=== PATIENT | female | born 1955 | race Caucasian/White ===

== ENCOUNTER 2021-08-06 14:03 | Emergency (ER) | payer MEDICARE, OTHER ==
[~2021-08-06] VITALS: Ht 172.7 cm; Wt 96.2 kg
[~2021-08-06 14:03] MED LIST: INDAPAMIDE2.5 MG PO; LACTULOSE10 GM/15 M PO; LEVOTHYROXINE50 MCG PO; ONDANSETRON ODT4 MG SL; PROMETRIUM100 MG PO; TYLENOL325 MG PO
[2021-08-06] MEDS ORDERED: AMLODIPINE BES2.5 MG PO (14:34)
== END 2021-08-06 16:21 | disposition home or self-care (01) ==
LOC: ED 14:03
DX: M96.89 Other intraoperative and postprocedural complications and disorders of the musculoskeletal system (principal); M79.89 Other specified soft tissue disorders; Z79.899 Other long term (current) drug therapy; E03.9 Hypothyroidism, unspecified; I10 Essential (primary) hypertension; Z88.0 Allergy status to penicillin; Z88.5 Allergy status to narcotic agent; Z91.048 Other nonmedicinal substance allergy status
CPT/HCPCS: 81001; 93971; 99284-25

== ENCOUNTER 2024-02-27 14:01 | Inpatient (IN) | payer MEDICARE, OTHER ==
[~2024-02-27] VITALS: Ht 172.7 cm; Wt 91.9 kg
[~2024-02-27 14:01] MED LIST changes: +AMLODIPINE BES2.5 MG PO
[2024-02-27] MEDS ORDERED: SODIUM CHLORIDE 0.9% 1,000 ML IV ONE (15:15)
[2024-02-27] MEDS ORDERED: PANTOPRAZOLE SODIUM 40 MG/10 ML VIAL IV ONE (15:15)
[2024-02-27] MEDS ORDERED: ondansetron HCL 4 MG/2 ML VIAL IV ONE (15:15)
[2024-02-27 15:32] LABS: BASOPHILS 1.5 % (0-2); EOSINOPHILS 0.9 % (0-6); HEMATOCRIT 41.4 % (35.0-50.0); HEMOGLOBIN 13.9 g/dL (12.0-18.0); LYMPHOCYTES 21.7 % (24-44); MCH 30.7 (27-36); MCHC 33.6 g/dl (30-36); MCV 91.2 fl (81-99); MONOCYTES 7.6 % (0-12); NEUTROPHILS 68.3 % (39-80); PLATELET COUNT 424 K/uL (140-440); RBC 4.54 M/ul (4.3-5.7); RDW 13.8 (10.5-15.0)
[2024-02-27 15:48] LABS: ALBUMIN 2.4 g/dL (3.4-5.0); ALBUMIN/GLOBULIN RATIO 0.44 (1.1-2.4); ANION GAP 14.8 (7-21); BILIRUBIN, TOTAL 0.5 ng/dL (0.2-1.0); BUN/CREATININE RATIO 11.2 (6.0-28.6); CREATININE, SERUM 1.16 mg/dL (0.55-1.02); POTASSIUM 2.8 mmol/L (3.5-5.1); PROTEIN, TOTAL 7.9 g/dL (6.4-8.2)
[2024-02-27 16:10] LABS: BILIRUBIN, URINE NEGATIVE (negative); BLOOD/HGB, URINE MODERATE (Negative); KETONE, URINE NEGATIVE (Negative); LEUK ESTERASE, URINE MODERATE (negative); NITRITE, URINE NEGATIVE (negative)
[2024-02-27] MEDS ORDERED: SEVOFLURANE 250 ML BTL INH ONE (16:17)
[2024-02-27 16:21] LABS: CASTS, URINE HYALINE 1+ \\lpf; EPITHELIAL CELLS, URINE SQUAMOUS 1+ /lpf (0-1+)
[2024-02-27 16:22] LABS: REFLEX CULTURE, URINE Yes (No)
[2024-02-27] MEDS ORDERED: levoFLOXacin 750 MG PIGGYBACK IV ONE (17:30)
[2024-02-27] MEDS ORDERED: metroNIDAZOLE/SODIUM CHLORIDE 500 MG/100 ML PIGGYBACK IV ONE (17:30)
[2024-02-27] MEDS ORDERED: LACTATED RINGER'S 1,000 ML IV SCH ×2 (18:00→21:30)
[2024-02-27] MEDS ORDERED: ondansetron HCL 4 MG/2 ML VIAL IV PRN ×2 (18:00→21:30)
[2024-02-27 18:48] VITALS: BP 123/94
--- NOTE | 2024-02-27 18:56 | NUR ---
PATIENT ARRIVED TO MED SURG AT 1842. PATIENT STOOD AND TRANSFERRED SELF TO BED WITH SBA. RIGHT A/C IV IS PAINFUL, SEEMS TO BE INFILTRATED. VITALS AND PATIENT WEIGHT RECORDED, ADMISSION STARTED. SCD'S ARE ON THE BED.
--- NOTE | 2024-02-27 19:38 | NUR ---
REPORT RECEIVED FROM DAY SHIFT RN. PT LYING IN BED ALERT AND ORIENTED. PT REQUESTING WATER OR ICE CHIPS. REMINDED OF NPO STATUS. ORAL CARE SUPPLIES PROVIDED. NO FURTHER NEEDS. CALL LIGHT IN REACH. WHITE BOARD UPDATED.
--- NOTE | 2024-02-27 19:45 | NUR ---
DR RAYMOND IN ROOM VISITING WITH PT AND HER .
[2024-02-27 20:15] VITALS: BP 129/55
[2024-02-27 20:16] VITALS: BP 129/55
--- NOTE | 2024-02-27 20:33 | NUR ---
pt cooperative with admit questins and assessment. very anxious, safety reassured. Up to BRp, voided clear yellow urine, back to bed, did own zabrina care, lotion to buttocks reddened area. Did own HS care, back to bed, tolerated well. IVF infusing, no c/o adverse reaction to IV abx.
--- NOTE | 2024-02-27 20:52 | NUR ---
DR PYLE HERE TO SEE PT
[2024-02-27] MEDS ORDERED: FAMOTIDINE 20 MG/ 2 ML VIAL IV SCH (21:00)
--- NOTE | 2024-02-27 21:12 | NUR ---
DR PYLE IN ROOM EXAMINING PT. PT WILL BE NPO AFTER MIDNIGHT, ICE CHIPS AND CLEAR FLUIDS GIVEN. SCDS IN PLACE, DR CHRISTELLE LEONARD.
[2024-02-27] MEDS ORDERED: CIPROFLOXACIN/DEXTROSE 400 MG/200 ML PIGGYBACK IV SCH (21:25)
[2024-02-27] MEDS ORDERED: MAGNESIUM HYDROXIDE/AL HYDROX 30 ML CUP PO PRN (21:30)
[2024-02-27] MEDS ORDERED: ACETAMINOPHEN 1,000 MG/100 ML VIAL IV PRN (21:30)
[2024-02-27] MEDS ORDERED: MAGNESIUM SULFATE 2 GM/50 ML BAG IV ONE (21:30)
[2024-02-27] MEDS ORDERED: POTASSIUM CHLORIDE 40 MEQ,LIDOCAINE HCL 1% 40 MG in DEXTROSE 5% 250 ML IV ONE (21:30)
[2024-02-27] MEDS ORDERED: MORPHINE SULFATE 10 MG/ML VIAL IV PRN (21:30)
[2024-02-27] MEDS ORDERED: KETOROLAC TROMETHAMINE 15 MG/ML VIAL IV PRN (21:30)
[2024-02-27] MEDS ORDERED: HYDROmorphone HCL 1 MG/ML SYR IV PRN (21:30)
[2024-02-27] MEDS ORDERED: ONDANSETRON 4 MG TAB ODT SL PRN (21:30)
[2024-02-27] MEDS ORDERED: metroNIDAZOLE/SODIUM CHLORIDE 500 MG/100 ML PIGGYBACK IV SCH (22:00)
[2024-02-27] MEDS ORDERED: POTASSIUM CHLORIDE 10 MEQ/100 ML BAG IV SCH (22:00)
--- NOTE | 2024-02-27 22:16 | NUR ---
PT UP TO BR WITH MINIMAL SBA TO VOID AN UNMEASURED AMOUNT. GAIT STEADY. BACK TO BED, MING WELL. WARM BLANKETS PROVIDED. SCD'S IN PLACE. NO FURTHER NEEDS.
[2024-02-27 23:40] VITALS: BP 118/49
[2024-02-27] MEDS ORDERED: diphenhydrAMINE HCL 50 MG/ML VIAL IV PRN (23:45)
[2024-02-27] MEDS ORDERED: PROCHLORPERAZINE EDISYLATE 10 MG/2 ML VIAL IV PRN (23:45)
[2024-02-28] VITALS (11 sets, daily range): BP systolic 112–1450; BP diastolic 50–97
--- NOTE | 2024-02-28 00:12 | NUR ---
CALL LIGHT ANSWERED. PT REPORTS FEELING FLUSHED. IV MAG STOPPED. VS WNL. NO REDNESS OR RASH NOTED. MD NOTIFIED. NEW TELEPHONE ORDERS RECEIVED VERIFIED WITH READBACK METHOD. MEDS ADMIN PER EMAR. PT REPORTS SX IMPROVED. NO FURTHER NEEDS.
--- NOTE | 2024-02-28 00:45 | NUR ---
SBA MINIMAL ASSIST TOT HE BATHROOM AND BACK TO BED. WARM BLANKET PROVIDED PER PATIENT. NO FURTHER NEEDS AT THIS TIME.
--- NOTE | 2024-02-28 01:59 | NUR ---
CALL LIGHT ANSWERED. PT UP TO BR WITH SBA TO VOID. BACK TO BED, MING WELL. WARM BLANKET PROVIDED. VS AND I&O OBTAINED. PT DENIES PAIN OR NAUSEA AT THIS TIME. ASSESSMENT COMPLETE. NO FURTHER NEEDS.
--- NOTE | 2024-02-28 02:40 | NUR ---
PT RESTING WITH EYES CLOSED. RESPIRATIONS EVEN. BAG #3 OF 4 IV POTASSIUM INFUSING PER ORDER.
--- NOTE | 2024-02-28 03:40 | NUR ---
BAG #4 OF 4 IV POTATSSIUM INFUSING PER ORDER. PT RESTING WITH EYES CLOSED. RESPIRATIONS EVEN.
[2024-02-28] MEDS ORDERED: POTASSIUM CHLORIDE 10 MEQ/100 ML BAG IV SCH (03:45)
--- NOTE | 2024-02-28 04:12 | NUR ---
CALL LIGHT ANSWERED. PT UP TO BR WITH SBA TO VOID. BACK TO BED, MING WELL. REPORTS DISCOMFORT WITH IV POTASSIUM INFUSION. EDUCATION PROVIDED. ARM WRAPPED IN WARM BLANKET. PT NPO. ORAL CARE SUPPLIES PROVIDED. NO FURTHER NEEDS.
[2024-02-28 05:30] LABS: BASOPHILS 0.6 % (0-2); EOSINOPHILS 1.3 % (0-6); HEMATOCRIT 37.8 % (35.0-50.0); HEMOGLOBIN 12.9 g/dL (12.0-18.0); LYMPHOCYTES 16.5 % (24-44); MCHC 34.2 g/dl (30-36); MCV 90.6 fl (81-99); MONOCYTES 9.4 % (0-12); NEUTROPHILS 72.2 % (39-80); PLATELET COUNT 426 K/uL (140-440); RBC 4.17 M/ul (4.3-5.7); RDW 13.8 (10.5-15.0)
[2024-02-28 05:45] LABS: ALBUMIN 1.8 g/dL (3.4-5.0); ALBUMIN/GLOBULIN RATIO 0.37 (1.1-2.4); ANION GAP 11.9 (7-21); BILIRUBIN, TOTAL 0.5 ng/dL (0.2-1.0); CALCIUM 8.3 mg/dL (8.5-10.1); MAGNESIUM 2.1 mg/dL (1.8-2.4); POTASSIUM 3.9 mmol/L (3.5-5.1); PROTEIN, TOTAL 6.7 g/dL (6.4-8.2)
--- NOTE | 2024-02-28 06:26 | NUR ---
PT RESTING WITH EYES CLOSED. RESPIRATIONS EVEN. IV ABX INFUSING PER ORDER. CALL LIGHT IN REACH.
--- NOTE | 2024-02-28 07:17 | NUR ---
VERBAL REPORT RECEIVED FROM CHOCO SOLANO. PT RESTS IN BED, AWAKE AND ALERT, NO REQUESTS AT THIS TIME.
--- NOTE | 2024-02-28 07:57 | NUR ---
UR CLINICAL REVIEW: 2MN JOE, MEETS INPT FOR POTENTIAL INTRA-ABDOMINAL ABSCESS MEDICARE INPT 02/27/2024 @ 1758 ORDER MATCHES REG NO AUTH REQUIRED PER MEDICARE RULES PLAN TO DC TO HOME WHEN MEDICALLY STABLE.
[2024-02-28] MEDS ORDERED: AMLODIPINE BESYLATE 2.5 MG TAB PO SCH (09:00)
[2024-02-28] MEDS ORDERED: FAMOTIDINE 20 MG/ 2 ML VIAL IV SCH (09:00)
--- NOTE | 2024-02-28 09:12 | NUR ---
PT REPORTS, "BURNING PAIN" IN LEFT IV SITE. CIPRO INFUSION STOPPED. IV FLUSHED WITH 10 CC OF NS, NO SWELLING OR LEAKING NOTED. REDNESS NOTED ABOVE SITE. NEW IV, 22 G STARTED IN RIGHT WRIST. INFUSION RESUMED IN RIGHT WRIST. NOTED FIRM, PAINFUL MASS IN RUQ UPON ABDOMINAL ASSESSMENT.
--- NOTE | 2024-02-28 09:32 | NUR ---
OFIRMEV INFUSION STARTED FOR ABDOMINAL PAIN, SEE EMAR.
--- NOTE | 2024-02-28 10:51 | NUR ---
PATIENT CALLED TO USE RESTROOM, THIS [facility] WORKER IN TO ASSIST. PATIENT UP TO BATHROOM FROM CHAIR, THEN TO BED FROM BATHROOM, SBA. DAUGHTER IN ROOM. WARM BLANKET GIVEN. CALL LIGHT IN REACH. NO FURTHER NEEDS AT THIS TIME.
--- NOTE | 2024-02-28 11:12 | NUR ---
ALERT AND ORIENTED IN BED. FAMILY MEMBER IN ROOM AT THIS TIME. PATIENT LIVES IN SINGLE LEVEL HOUSE WITH "A COUPLE" STEPS WITH HANDRAIL TO GET INSIDE, WITH HER . SHE HAS A WALKER, CANE AT HOME. SHE DOES NOT USE THEM AT BASELINE. STATES SHE DRIVES. SHE HAS NO FINANCIAL CONCERNS. NO KNOWN CM NEEDS AT THIS TIME.
--- NOTE | 2024-02-28 11:30 | NUR ---
PATIENT NEEDED HELP THIS MORNING TO DO SURGICAL WIPE DOWN. NEW GOWN AND SOCKS AND NURSE PUT NEW BED LINENS ON. WARM BLANKET AND SCDS ON.
[2024-02-28] MEDS ORDERED: DEXAMETHASONE SOD PHOS 4 MG/ML VIAL ONE ×2 (11:47→14:21)
[2024-02-28] MEDS ORDERED: dexmedeTOMIDine HCl 200 MCG/2 ML VIAL ONE (11:47)
[2024-02-28] MEDS ORDERED: KETOROLAC TROMETHAMINE 30 MG/ML VIAL ONE (11:47)
[2024-02-28] MEDS ORDERED: ROCURONIUM BROMIDE 50 MG/5 ML SYR ONE ×2 (11:47→14:45)
[2024-02-28] MEDS ORDERED: propofoL 200 MG/20 ML VIAL ONE (11:47)
[2024-02-28] MEDS ORDERED: ondansetron HCL 4 MG/2 ML VIAL ONE (11:47)
[2024-02-28] MEDS ORDERED: LIDOCAINE HCL 1% 30 ML SDV ONE (11:47)
[2024-02-28] MEDS ORDERED: LIDOCAINE HCL 2% 5 ML SDV ONE (11:47)
[2024-02-28] MEDS ORDERED: KETAMINE in NS 50 MG/5 ML SYR ONE (11:52)
--- NOTE | 2024-02-28 11:52 | HP ---
[facility] [address] [place], [place] [address] Signed ADMISSION DATE: 02/27/2024 REASON FOR ADMISSION: Right lower abdominal wall soft tissue mass and suspicion of enterocutaneous fistula or hematoma. HISTORY: This 69-year-old white woman is from [place], [place]. She was found by Dr. Gregg to have what sounds uterine carcinoma for which she was referred to [place], [place] top Dr Rosales and underwent a total hysterectomy without salpingo-oophorectomy she says about a month ago. This was by laparoscopic or robotic technique. She has had unremitting right-sided abdominal pain since operation. She tells me there was swelling and possibly what sounds like a hematoma in the area, which was never drained. She has been feeling poorly since her operation from the outset. She was evaluated by Dr. Gregg in his clinic and found to have a palpable mass in the region of the right lower abdomen directly beneath a trocar site incision. On that basis, he referred her to the emergency room for further evaluation. She was found to have a palpable mass in the right lower abdomen, which was somewhat tender well demarcated and hard in texture. A CT scan was performed, which showed acute jejunal diverticulitis with fistulous tract extending to a loop of small bowel deep to the umbilicus and to the right anterior abdominal wall with multiloculated abscess/adjacent abscess extending through the abdominal wall musculature. There is nonspecific left pelvic cystic fluid collections 5.6 cm in size and possible ovarian or paraovarian cyst. 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 Evaluation included a CBC, which was essentially normal with a white count of 10.0, hematocrit 41.4, platelets 424,000. Chem 20 was abnormal for potassium low at 2.8, creatinine elevated at 1.16. Liver enzymes normal. Urinalysis was abnormal for elevated urine. White blood cells are 12-20 per high-power field. Urine RBCs 4 to 6 per high-power field. PH was 6.0, specific gravity 1.010. PHYSICAL EXAMINATION: GENERAL: A pleasant white woman with a BMI of 29.9, weighing 89.2 kg, and height 5 feet 8 inches in height. NECK: Trachea is midline. She has no hoarseness. There is no sign of systemic toxicity. CHEST: Clear. Electronically Signed By: AURELIA PYLE MD 02/28/24 1152 PATIENT NAME: AUDRA OROZCO HISTORY AND PHYSICAL DATE OF : 55 REPORT #: [id number] PHYSICIAN: AURELIA PYLE MD PCP: SUSAN WILLAMS MD REPORT IS CONFIDENTIAL AND NOT TO BE RELEASED WITHOUT AUTHORIZATION [facility] [address] [place], [place] [address] Signed HEART: Regular without murmur. ABDOMEN: Obese, but soft. There are multiple trocar site incisions of the abdomen. In the right lower abdomen, there is a palpable mass about the size of a tennis ball with a small trocar site directly over it. It is not erythematous. It is mildly tender. EXTREMITIES: Show no clubbing, cyanosis, or edema. SCD devices are not yet in place, so they will be soon. LAB STUDIES: As previously noted. ASSESSMENT: The patient had a gynecologic malignancy ( uterine) with hysterectomy a month ago She did undergo hysterectomy and I am uncertain regarding salpingo-oophorectomy. In any case, the finding currently is a tender mass, which has been evolving over weeks since operation. Close inspection of the images did not show generalized free intraperitoneal air, but certainly does show a subcutaneous soft tissue mass with rim enhancement suggestive of abscess, though it could be an involuting hematoma. On the peritoneal side of this process is a similar pocket of abscess or other similar phenomenon, which looks contiguous to small loop of bowel in the region. The gallbladder has some distention and one small stone noted, but not acutely inflamed so far as can be told. One wonders if there was perhaps an enteric injury during the operation four weeks ago versus possibly a hematoma related to trocar placement, which appears to be directly over the area in question. Notes from her hospital have been requested, but not yet available to better define these particulars. 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 We discussed all these issues in detail. She understands and agrees to this approach at this time. There is no need for emergent operation at this moment. Of special note, identified on the CT scan was the incidental finding of nonspecific left pelvic cystic fluid collection. There is no adenopathy noted in the retroperitoneum or pelvis. Metallic artifact cause distortion to poorly characterize the pelvic structures. Bladder and distal ureters were not well visualized. The body wall was interpreted as having (abdominal abscess tending straight in through the right abdominal wall and into the subcutaneous fat). Electronically Signed By: AURELIA PYLE MD 02/28/24 1152 PATIENT NAME: AUDRA OROZCO HISTORY AND PHYSICAL DATE OF : 55 REPORT #: [id number] PHYSICIAN: AURELIA PYLE MD PCP: SUSAN WILLAMS MD REPORT IS CONFIDENTIAL AND NOT TO BE RELEASED WITHOUT AUTHORIZATION [facility] [address] [address] Signed We will keep our options open for possible need for exploration tomorrow by making patient n.p.o. after midnight. We will continue broad-spectrum antibiotic Cipro and Flagyl for the time being. MD SRIDHAR Ramos/APOORVA /[id number] cc: DO Dr. Prachi Ramesh Copies: OLLIE GREGG (FAVIO) ~ Electronically Signed By: AURELIA PYLE MD 02/28/24 1152 PATIENT NAME: AUDRA OROZCO HISTORY AND PHYSICAL DATE OF : 55 REPORT #: [id number] PHYSICIAN: AURELIA PYLE MD PCP: SUSAN WILLAMS MD REPORT IS CONFIDENTIAL AND NOT TO BE RELEASED WITHOUT AUTHORIZATION
--- NOTE | 2024-02-28 11:59 | NUR ---
CHG PRE-SURGICAL WIPE DOWN COMPLETE. BED LINENS CHANGED. PT TO BED. SURGICAL TEAM ESCORTS PT OFF UNIT TO PROCEDURE. DAUGHTER FOLLOWS.
[2024-02-28] MEDS ORDERED: SODIUM CHLORIDE 0.9% 20 ML IV ONE ×2 (12:28→16:08)
--- NOTE | 2024-02-28 12:35 | NUR ---
PT REPORT RECIEVED FROM CHOCO ZURITA. PT CURRENTLY IN SURGERY WITH MD PYLE. PT SHOULD RETURN SHORTLY.
--- NOTE | 2024-02-28 12:38 | NUR ---
VERBAL REPORT PROVIDED TO JANETT RN AND CHOCO MO.
[2024-02-28] MEDS ORDERED: MAGNESIUM SULFATE 1 GM/2 ML VIAL ONE (12:39)
[2024-02-28] MEDS ORDERED: LACTATED RINGER'S 1,000 ML IV ONE ×2 (13:34→14:51)
[2024-02-28] MEDS ORDERED: SODIUM CHLORIDE 0.9% 60 ML IV ONE (14:21)
[2024-02-28] MEDS ORDERED: Ropivacaine HCl 0.5% 30 ML VIAL ONE ×2 (14:21→16:08)
[2024-02-28] MEDS ORDERED: SUGAMMADEX SODIUM 200 MG/2 ML ML ONE (14:45)
[2024-02-28] MEDS ORDERED: ACETAMINOPHEN 1,000 MG/100 ML VIAL ONE (14:49)
[2024-02-28] MEDS ORDERED: droPERidol 5 MG/2 ML VIAL ONE (15:42)
[2024-02-28] MEDS ORDERED: LEVOTHYROXINE75 MCG PO (15:54)
--- NOTE | 2024-02-28 15:58 | NUR ---
medications reconciled
--- NOTE | 2024-02-28 17:16 | NUR ---
02/28/24 1716 Yareli Palmer 1647-PT ARRIVES TO PACU ON 6L VIA MASK. PT IS NONAROUSABLE TO VERBAL STIMULI. PT REQUIRES CHIN LIFT DONE BY ASSISTANT MEN'S LACROSSE COACH. HOB ELEVATED. 1655-PT IS NONAROUSABLE TO VERBAL/TACTILE SIMULI. PT REQUIRES CHIN LIFT DONE BY ASSISTANT MEN'S LACROSSE COACH. 1701-PT IS REACTIVE TO VERBAL STIMULI. RESP EVEN AND UNLABORED. ENCOURAGED PT TO TAKE DEEP BREATHS. HOB DECREASE. 1707-PT IS REACTIVE TO VERBAL STIMULI. RES EVEN AND UNLABORED. PT ENCOURAGED TO TAKE DEEP BREATHS. PT SHAKES HER HEAD YES. 1715-PT RESPONDS TO VERBAL STIMULI. PT SHAKES HEAD NO WHEN ASKED ABOUT PAIN. RESP EVEN AND UNLABORED.
[2024-02-28] MEDS ORDERED: NALOXONE HCL 0.4 MG SYR IV PRN (17:30)
[2024-02-28] MEDS ORDERED: IBLOOD GLUCOSE TEST STRIP 1 EA TEST VI PRN (17:30)
[2024-02-28] MEDS ORDERED: fentaNYL citrate 50 MCG/ML SDV IV PRN (17:30)
[2024-02-28] MEDS ORDERED: ondansetron HCL 4 MG/2 ML VIAL IV PRN (17:30)
[2024-02-28] MEDS ORDERED: KETOROLAC TROMETHAMINE 30 MG/ML VIAL IV PRN (18:30)
[2024-02-28] MEDS ORDERED: ACETAMINOPHEN 1,000 MG/100 ML VIAL IV PRN (18:30)
--- NOTE | 2024-02-28 18:32 | NUR ---
PT BROUGHT TO MED/SURG FROM THE PACU VIA STRETCHER. PT REPORT RECIEVED FROM PACU, RN. DURING TRANSPORT PT BECAME NAUSEOUS AND VOMMITED 100ML SUCTION IN REACH AND HEAD ELEVATED >30 DEGREES. PT ARRIVED WITH A MIDLINE WITH SUTURES, STERI STRIP, AND ACTICOAT DRESSING, SCANT SHADOWING UNDER DRESSING. PT HAS A WOUND VAC ON THE RUQ @ 120MMhG TO DRAIN THE ABCESS, WENDY DRAIN IN THE RLQ AND A WIGGINS CATHETER. WENDY DRAIN - 20ML SANGUINEOUS, WIGGINS - 75ML DARK YELLOW. VITALS COMPLETED AND CPOX IN PLACE. PT DAUGHTER MENTIONED THAT THE PT HAS A HX OF O2 DESATING POST OP. PT CURRENTLY SATTING AT 94 O2 ON CPOX.
--- NOTE | 2024-02-28 18:44 | NUR ---
PT FLOATED LEFT SIDE AND WARM PACK PROVIDED TO LOW BACK FOR COMFORT.
--- NOTE | 2024-02-28 19:21 | NUR ---
In with pt while primary RN, Asmita, receiving report on this pt. Pt is resting with eyes closed, supine, in bed, breathing is regular, even, and non-labored. Kenya Black obtained VS for post op. Midline incision covered, dressing with small amount of shadowing to the middle of the dressing. Wound vac set to 120, no drainage in cannister noted. WENDY dressing with minute amount of drainage, WENDY emptied of 55ml sanguinous fluid. Pt awakens easily to light touch and voice. Denies needs at this time. Pt's daughter in room.
--- NOTE | 2024-02-28 19:39 | NUR ---
REPORT RECEIVED FROM DAY SHIFT RN. PT LYING IN BED RESTING WITH EYES CLOSED. RESPIRATIONS EVEN. SpO2 93% ON RA. HR 60'S. CALL LIGHT IN REACH.
--- NOTE | 2024-02-28 20:12 | NUR ---
In with pt in response to request for RN. Pt requests to sit up at edge of bed because she is nauseated. Primary RN advised and confirmed okay to administer PRN compazine at this time. Pt with approx 100ml clear emesis into emesis bag. Compazine administered per emar, slow IVp with flush before and after. Pt given water and mouth wash to rinse and spit with and instructed daughter to encourage her not to swallow any liquid as she is NPO. Both verbalized understanding. Call light in reach. Daughter assisting pt with cool wash cloth.
--- NOTE | 2024-02-28 20:30 | NUR ---
PT RESTING WITH EYES CLOSED. AWAKENS EASILY. POST OP VS OBTAINED, WNL. NO C/O PAIN AT THIS TIME. PT/FAMILY REPORTS NAUSEA IMPROVED. BOWEL TONES HYPOACTIVE. ABD SOFT. ABD INCISION WITH SMALL AMOUNT SEROSANG DRAINAGE. WENDY WITH 30 ML SANGUINEOUS DRAINAGE. WOUND VAC INTACT TO RIGHT QUADRANT AT 120 MMHG. WIGGINS PATENT WITH YELLOW URINE. SCD'S IN PLACE. ASSISTED PT TO REPOSITION WITH PILLOWS. DAUGHTER AT BEDSIDE. NO FURTHER NEEDS.
--- NOTE | 2024-02-28 21:00 | NUR ---
Pt requested to use O2 while sleeping. Daughter states that the pt usually needs oxygen at night after surgery. Updated primary RN before applying 1lpm O2 via NC to pt. CPOX on. Pt resting quietly with eyes closed, breathing is regular, even, and non-labored, spo2 at 96% on room air prior to placing pt on O2.
--- NOTE | 2024-02-28 21:01 | NUR ---
PATIENT STOOD UP AT THE EDGE OF THE BED FOR 1 TO 2 MINUTES HOLDING ON TO THE WALKER. PATIENT STATED NO FEELING OF NAUSEA, YET. PATIENT IS BACK IN BED. WARM BLANKET PROVIDED. FAMILY IN THE ROOM.
--- NOTE | 2024-02-28 21:30 | NUR ---
SCHEDULED MEDS ADMIN PER EMAR. PT REQUESTS SCD'S TO BE REMOVED. EDUCATION PROVIDED. PT VERBALIZES UNDERSTANDING. SCD'S OFF. ASSISTED TO REPOSITION TO LEFT SIDE WITH PILLOWS. NO C/O NAUSEA OR ABD PAIN. PT REPORTS CHRONIC BACK PAIN. POST OP VS OBTAINED, WNL. ORAL CARE SUPPLIES PROVIDED. NO FURTHER NEEDS.
--- NOTE | 2024-02-28 21:55 | NUR ---
PATIENT CALLED WANTING TO GET UP TO SIT AT THE EDGE OF THE BED. PATIENT SAT FOR 15 MINUTES. PATIENT HAD SOME DRY HEAVING. PATIENT RINSED HER MOUTH WITH WATER AND MOUTH WASH. PATIENT IS BACK IN BED. TUBINGS OF WOUND BACK, WIGGINS AND WENDY WERE CHECK AND ALL WERE IN PLACED.
--- NOTE | 2024-02-28 23:17 | NUR ---
IV PUMP ALARMING. ISSUE RESOLVED. PT DOZING ON AND OFF SNORING SOFTLY. REQUESTS TYLENOL FOR PAIN. PRN FOR PAIN ADMIN PER EMAR. PT LEFT IN RELAXED POSITION. DAUGHTER RESTING ON COUCH. NO FURTHER NEEDS.
[2024-02-29] VITALS (8 sets, daily range): BP systolic 120–141; BP diastolic 48–66
--- NOTE | 2024-02-29 00:21 | NUR ---
CALL LIGHT ANSWERED. PT REQUESTING TO SIT AT THE SIDE OF THE BED. IN TO ASSIST. PT REPORTS MIDDLE BACK PAIN PREVENTING HER FROM GETTING COMFORTABLE. PT REPORTS PAIN IS CHRONIC AND MADE WORSE "BY WHAT EVER THEY DID." ASSISTED PT TO RECLINER WITH FWW. GAIT STEADY. AIR MATTRESS APPLIED TO BED. PT BECAME NAUSEOUS WHILE SITTING. PRN N/V ADMIN PER EMAR. BACK TO BED, MING WELL. ASSISTED TO REPOSITION WITH PILLOWS. PT REPORTS SHE IS COMFOTABLE AT THIS TIME CPOX IN PLACE. DAUGHTER REMAINS IN ROOM. CALL LIGHT IN REACH.
--- NOTE | 2024-02-29 01:04 | NUR ---
PT RESTING IN BED WITH EYES CLOSED. RESPIRATIONS EVEN. HOB ELEVATED. SpO2 MID 90'S ON RA. HR 60'S.
--- NOTE | 2024-02-29 02:01 | NUR ---
CALL LIGHT ANSWERED. PT REQUESTING ICE CHIPS. EDUCATION GIVEN REGARDING NPO STATUS. PT RECEPTIVE. ORAL SWABS AND ORAL MOISTURIZER PROVIDED. VS AND I&O OBTAINED. PT REPORTS NAUSEA AND 5/10 BACK/ABD PAIN. PRN FOR PAIN AND N/V ADMIN PER EMAR. ASSESSMENT UNCHANGED. BOWEL TONES HYPOACTIVE. PT DENIES FLATUS. ABD DRESSING INTACT WITH SMALL AMOUNT SHADOWING. WENDY RLQ WITH 20 ML SANGUINOUS DRAINAGE. WOUND VAC IN PLACE. WIGGINS PATENT WTIH 100 ML CONCENTRATED URINE. NO FURTHER NEEDS. CALL LIGHT IN REACH.
--- NOTE | 2024-02-29 02:59 | NUR ---
CALL LIGHT ANSWERED. PT UP TO AMB HALF THE LENGTH OF THE DRIVER WITH SBA. GAIT STEADY. PT MING WELL. BACK TO BED. ORAL MOISTURIZER AND WARM BLANKETS PROVIDED. NO FURTHER NEEDS.
--- NOTE | 2024-02-29 04:01 | NUR ---
PT RESTING IN BED WITH EYES CLOSED. RESPIRATIONS EVEN. CALL LIGHT IN REACH.
--- NOTE | 2024-02-29 04:50 | NUR ---
PT UP TO AMB THE LENGTH OF THE DRIVER WITH FWW AND SBA. GAIT STEADY. BACK TO RECLINER. PT REPORTS NAUSEA AFTER RETURNING TO ROOM. TOO EARLY FOR PRN N/V. PT AGREEABLE TO WAIT FOR NEXT AVAILABLE NAUSEA HAD PASSED.
[2024-02-29 05:25] LABS: BASOPHILS 0.5 % (0-2); EOSINOPHILS 0.1 % (0-6); HEMATOCRIT 38.1 % (35.0-50.0); HEMOGLOBIN 12.9 g/dL (12.0-18.0); LYMPHOCYTES 6.6 % (24-44); MCH 30.8 (27-36); MCHC 33.8 g/dl (30-36); MCV 91.2 fl (81-99); MONOCYTES 4.4 % (0-12); NEUTROPHILS 88.4 % (39-80); PLATELET COUNT 367 K/uL (140-440); RBC 4.17 M/ul (4.3-5.7)
[2024-02-29 05:41] LABS: ALBUMIN 1.8 g/dL (3.4-5.0); ALBUMIN/GLOBULIN RATIO 0.42 (1.1-2.4); ANION GAP 12.9 (7-21); BILIRUBIN, TOTAL 0.4 ng/dL (0.2-1.0); BUN/CREATININE RATIO 10.93 (6.0-28.6); CALCIUM 7.8 mg/dL (8.5-10.1); CREATININE, SERUM 1.28 mg/dL (0.55-1.02); POTASSIUM 3.9 mmol/L (3.5-5.1); PROTEIN, TOTAL 6.1 g/dL (6.4-8.2)
--- NOTE | 2024-02-29 06:16 | NUR ---
PT BACK TO BED WITH SBA AND FWW. PRN FOR N/V AND ABD PAIN 08/14 ADMIN PER EMAR. IV ABX INFUSING PER ORDER. ORAL CARE SUPPLIES PROVIDED. NO FURTHER NEEDS.
--- NOTE | 2024-02-29 06:36 | NUR ---
MD UPDATED ON PT STATUS REGARDING LOW/CONCENTRATED URINE OUTPUT, WENDY OUTPUT, AND NAUSEA THROUGH THE NIGHT. TELEPHONE ORDERS RECEIVED VERIFIED WITH READBACK METHOD.
[2024-02-29] MEDS ORDERED: LORazepam 2 MG/ML VIAL IV PRN (06:45)
[2024-02-29] MEDS ORDERED: LACTATED RINGER'S 500 ML IV ONE (06:45)
--- NOTE | 2024-02-29 06:55 | NUR ---
FEW ICE CHIPS GIVEN, EDUCATION PROVIDED TO PT AND DAUGHTER ON TAKING SMALL AMOUNTS. BOLUS INFUSING PER ORDER. 2PA TO REPOSITION IN BED. NO FURTHER NEEDS.
--- NOTE | 2024-02-29 07:38 | NUR ---
RECIEVED ROUND REPORT FROM CHOCO SOLANO. PT IS SLEEPING WELL. DAUGHTER SLEEPING AT BEDSIDE. NO NEEDS AT THIS TIME.
--- NOTE | 2024-02-29 07:58 | NUR ---
PT WOUND VAC WAS ALARMING. TUBE WAS UNDER HER LEG. REARRIGNED TUBING AND RESTARTED WOUND VAC. ASSISTED PT UP TO WALK IN DRIVER.
--- NOTE | 2024-02-29 08:50 | NUR ---
PT HAS BEEN UP TO CHAIR AND UP WALKING ALREADY THIS MORNING. SHE HAS RETURNED TO BED AT THIS TIME. WOUND VAC IS FUNCTIONING CORRECTLY, FLUID IN TUBE BUT NOT IN CANISTER AT THIS TIME. NO NEW DRAINAGE ON ABD DRESSING. IVF RUNNING PER ORDER, ABX ALSO RUNNING.
--- NOTE | 2024-02-29 12:25 | NUR ---
PT IS SLEEPING. DAUGHTER AT BEDSIDE. RESET FLUIDS TO FINISH INFUSION. ANSWERED QUESTIONS RE: TYLENOL AND WIGGINS.
--- NOTE | 2024-02-29 13:42 | NUR ---
PATIENT GIVEN IV TORADOL AND IV TYLENOL FOR 7/10 ABD PAIN.
--- NOTE | 2024-02-29 13:59 | NUR ---
PATIENT IN BED RESTING AT THIS TIME. VITALS AND I&O'S DONE AND CHARTED. CATH CARE DONE. CALL LIGHT IN REACH. NO FURTHER NEEDS AT THIS TIME.
--- NOTE | 2024-02-29 14:13 | NUR ---
PT IS SLEEPING SOUNDLY. APPEARS COMFORTABLE. DAUGHTER AT BEDSIDE.
--- NOTE | 2024-02-29 17:51 | NUR ---
PT HAS BEEN UP WALKING SEVERAL TIMES THIS SHIFT. SHE HAS BEEN UP TO CHAIR MULTIPLE TIMES. WOUND VAC HAS BEEN FUNCTIONING WELL, SCANT AMOUNT OF FLUID IN CANISTER. WENDY DRAIN DRAINING ALMA BLOOD. IVF RUNNING PER ORDER. PT HAS BEEN ANXIOUS, LORAZEPAM GIVEN X1. PT REPORTED SOME NAUSEA, ANTIEMETICS GIVEN X2. PT GIVEN TORADOL AND TYLENOL X1 EACH THIS SHIFT.
--- NOTE | 2024-02-29 18:03 | NUR ---
IN TO ASSIST PATIENT TO BATHROOM, UP TO BATHROOM SBA. PATIENT NOW AMBULATING IN HALLWAY, SBA WITH DAUGHTER.
--- NOTE | 2024-02-29 19:34 | NUR ---
REPORT RECIEVED FROM DAY SHIFT RN. PATIENT RESTING IN BED WITH DAUGHTER IN ROOM. DENIES NEEDS AT THIS TIME. CALL LIGHT IN REACH.
--- NOTE | 2024-02-29 20:52 | NUR ---
call light answered, iv tylenol complete. iv site wnl and now saline locked. second iv site has iv fluids infusing as directed. family in room. spo2 low 90's, hr wnl. family in room, call light in reach.
--- NOTE | 2024-02-29 21:34 | NUR ---
PATIENT RESTING IN BED. SCHEDULED MEDICATION ADMINSITERED. BOTH IVs FLUSH WNL. ASSESSMENT COMPLETE. ABD DRESSING C/D/I WITH MINIMAL DRY DRAINAGE. 18 mL SEROSANGGUINEOUS DRAINAGE OUT OF WENDY DRAIN. PATIENT REFUSING SCDs AT THIS TIME. PATIENT AND DAUGHTER DENY NEEDS AT THIS TIME. CALL LIGHT IN REACH.
--- NOTE | 2024-02-29 22:23 | NUR ---
call light answered, pt restless and wanting to get oob, daughter akilah remains at bedside and attentive. pt up, slow moving but steady on feet. assistance required for tube management. pt ambulated sba with fww to abthroom, vaca emptied for 350mls yellow urine and pt has small bm, pebble like in consistency. pt wishes to have waffle mattress removed at this time for comfort, new bed linen in place. pt back in bed, iv sites wnl. iv pump and wound vac both plugged in and charging. cpox resumed along with scd's. no further needs, call light in reach. daughter provided with snack and fresh soda. primary rn updated.
--- NOTE | 2024-02-29 22:45 | NUR ---
SCHEDULED IV ABX INFUSING PER ORDER. NO FURTHER NEEDS. CALL LIGHT IN REACH.
[2024-03-01] VITALS (9 sets, daily range): BP systolic 132–148; BP diastolic 50–57
--- NOTE | 2024-03-01 01:32 | NUR ---
PATIENT REPORTING FEELING ANXIOUS. PRN ANXIETY MEDICATION ADMINISTERED. PATIENT HAS NO FURTHER NEEDS. CALL LIGHT IN REACH.
--- NOTE | 2024-03-01 02:06 | NUR ---
PATIENT BATHROOM CALL LIGHT ALARMING. PATIENT STATES SHE WAS UNABLE TO VOID. PATIENT BACK TO BED. NO FURTHER NEEDS AT THIS TIME. CALL LIGHT IN REACH.
--- NOTE | 2024-03-01 03:12 | NUR ---
CALL LIGHT ANSWERED. PATIENT UP TO BATHROOM. PATIENT UNABLE TO HAVE BM. PATIENT BACK TO BED. NEW BAG IV FLUID INFUSING PER ORDER. PATIENT REQUESTING IV PAIN MEDICATION FOR 7/10 PAIN. PATIENT DENIES FURTHER NEEDS. CALL LIGHT IN REACH.
[2024-03-01 05:33] LABS: BASOPHILS 0.2 % (0-2); EOSINOPHILS 0.1 % (0-6); HEMATOCRIT 32.6 % (35.0-50.0); HEMOGLOBIN 10.8 g/dL (12.0-18.0); LYMPHOCYTES 8.6 % (24-44); MCH 30.6 (27-36); MCHC 33.1 g/dl (30-36); MCV 92.7 fl (81-99); MONOCYTES 5.4 % (0-12); NEUTROPHILS 85.7 % (39-80); PLATELET COUNT 284 K/uL (140-440); RBC 3.52 M/ul (4.3-5.7); RDW 13.4 (10.5-15.0)
--- NOTE | 2024-03-01 05:40 | NUR ---
PATIENT RESTING IN BED ON BACK. WENDY DRAIN OUTPUT 30mL OF SEROSANGINOUS DRAINAGE. PATIENT ABD DRESSING C/D/I WITH MINIMAL DRY DRAINAGE. SCHEDULED IV ABX INFUSING PER ORDER. NO FURTHER NEEDS AT THIS TIME. CALL LIGHT IN REACH.
[2024-03-01 05:41] LABS: ALBUMIN 1.8 g/dL (3.4-5.0); ALBUMIN/GLOBULIN RATIO 0.45 (1.1-2.4); ANION GAP 14.3 (7-21); BILIRUBIN, TOTAL 0.4 ng/dL (0.2-1.0); BUN/CREATININE RATIO 10.61 (6.0-28.6); CALCIUM 7.9 mg/dL (8.5-10.1); CREATININE, SERUM 1.13 mg/dL (0.55-1.02); POTASSIUM 3.3 mmol/L (3.5-5.1); PROTEIN, TOTAL 5.8 g/dL (6.4-8.2)
--- NOTE | 2024-03-01 07:03 | NUR ---
CALL LIGHT ANSWERED. PT STATED THE NEED TO HAVE A BM. QUALITY ASSURANCE GROUP LEADER 1PA WITH FWW TO BATHROOM. PT INSTRUCTED TO USE BATHROOM CALL LIGHT WHEN DONE. CALL LIGHT ANSWERED. PT UNABLE TO HAVE BM. PT WANTED TO SIT IN CHAIR. QUALITY ASSURANCE GROUP LEADER ASSISTED PT TO CHAIR. PT CPOX RECONNECTED. PT STATES NO FURTHER NEEDS AT THIS TIME. CALL LIGHT WITHIN REACH.
--- NOTE | 2024-03-01 07:10 | NUR ---
REPORT RECEIVED FROM CHOCO ALVAREZ. PT SITTING UP IN RECLINER, REQUESTS ICE CHIPS AT THIS TIME - PROVIDED. PTs DAUGHTER ON COUCH. CALL LIGHT IN REACH, NO OTHER NEEDS AT THIS TIME.
--- NOTE | 2024-03-01 07:43 | NUR ---
PT AMBULATES IN HALLWAY WITH DAUGHTER AND FWW. ASSISTED BACK TO BED AT THIS TIME. WOUND VAC IN PLACE WITH SUCTION, WIGGINS DRAINING FREELY TO R OF BED, IVF INFUSING WNL. DAUGHTER REMAINS WITH PT. CALL LIGHT IN REACH.
--- NOTE | 2024-03-01 08:34 | NUR ---
MORNING MEDICATIONS ADMINISTERED, SEE MAY. ASSESSMENT COMPLETE. PT IS BACK IN BED AFTER AMBULATING WITH DAUGHTER, PTs DAUGHTER REPORTS THAT PT DID NOT SLEEP WELL LAST NIGHT. PT IS COMPLAINING OF MILD NAUSEA AND APPEARS ANXIOUS. PRN COMPAZINE ADMINISTERED PER MAY. MIDLINE SURGICAL DRESSING IS DRY AND INTACT WITH RED SHADOWING NOTED. WENDY DRAIN TO RLQ HAS DRESSING THAT IS C/D/I, WENDY TUBING STRIPPED AT THIS TIME, SMALL AMOUNT OF SEROSANGUINOUS DRAINAGE NOTED. PT REPORTS HER STOMACH "IS GROWLING" AND IS ASKING WHEN SHE MAY HAVE SOMETHING SUCH BROTH OR JELLO. INFORMED PT OF CURRENT PLAN OF CARE, PT AND PTs DAUGHTER ARE BOTH EAGER TO SEE THE MD THIS MORNING. WIGGINS FREELY DRAINING CLEAR, YELLOW URINE. WOUND VAC IN PLACE TO MIDLINE INCISION IS ON AND WORKING WITH SEROSANGUINOUS FLUID NOTED IN TUBING. NO OTHER NEEDS AT THIS TIME, CALL LIGHT IN REACH.
--- NOTE | 2024-03-01 09:58 | NUR ---
PT AMBULATES TO BATHROOM WITH FWW, DAUGHTER PRESENT WITH HER AT THIS TIME. PT HAS INCONTINENCE OF BOWEL AT THIS TIME. PT IS ASSISTED TO CLEAN UP, GERALDINE-CARE PROVIDED, PULL-UP IN PLACE. PT REMAINS AT SINK TO BRUSH TEETH AND WASH FACE AT THIS TIME. DAUGHTER REMAINS IN ROOM.
--- NOTE | 2024-03-01 10:57 | NUR ---
WE I WENT IN THIS MORNING PATIENT WAS SITTING UP IN HER CHAIR. FAMILY MEMBER IN ROOM. IF SHE NOT BACK IN BED I AM GOING IN TO CHANGE HER BED LINENS.
[2024-03-01] MEDS ORDERED: IBUPROFEN 600 MG TAB PO PRN (11:00)
[2024-03-01] MEDS ORDERED: ACETAMINOPHEN 500 MG TAB PO PRN (11:00)
--- NOTE | 2024-03-01 11:04 | NUR ---
PATIENT BACK IN BED.
--- NOTE | 2024-03-01 11:09 | NUR ---
NO CM NEEDS AT THIS TIME. PLANS TO DC TO HOME WHEN MEDICALLY STABLE.
--- NOTE | 2024-03-01 11:35 | OR ---
[facility] [address], [place] [address] Signed DATE OF OPERATION: 02/28/2024 SURGEON: Aurelia Pyle MD PREOPERATIVE DIAGNOSES: 1. 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 2. History of robotic hysterectomy for uterine carcinoma (Dr. Lambert, [place], [place], one month ago). POSTOPERATIVE DIAGNOSES: 1. Intramural abscess of abdominal wall with associated hematoma. 2. 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 PROCEDURES: 1. Exploration of abdomen with drainage of intraabdominal abscess and cultures. 2. Extensive lysis of intraabdominal small bowel adhesions. 3. Segmental small bowel resection x2 (ileum and jejunum). 4. Drainage of abdominal wall abscess and associated hematoma. 5. Application of wound VAC device to abdominal wall wound defect. SIGNAL HELPER: Ryne Pyle MD. ANESTHESIA: General endotracheal; Mansi Fahad, COAL AND ASH SUPERVISOR, and postoperative TAP block. HISTORY OF PRESENT ILLNESS: This 69-year-old obese woman underwent a robotic uterine resection for uterine cancer about one month ago in [place], [place] by Dr. Lambert. She is a patient of Dr. Reji Gregg generally and Dr. Karla Azar as well. From the beginning of her postoperative course, she had abdominal pain on the right side, which has worsened over time. She developed a subcutaneous mass on that side and was evaluated by Dr. Gregg yesterday in his office. The mass was tender and mildly erythematous and located beneath a right midclavicular mid abdominal trocar site. There has been no necessitation-- yet. Dr Gregg referred her to the emergency room where evaluation was undertaken including a CT scan of the abdomen, confirming what was considered a jejunal-cutaneous fistula with subcutaneous abscess and probable intraabdominal-associated abscess. The patient's white count is normal. She has no generalized free air through the abdomen. Fluid resuscitation and antibiotics have been Electronically Signed By: AURELIA PYLE MD 03/01/24 1135 PATIENT NAME: AUDRA OROZCO OPERATIVE REPORT DATE OF : 55 REPORT #: [id number] PHYSICIAN: AURELIA PYLE MD PCP: KARLA AZAR MD REPORT IS CONFIDENTIAL AND NOT TO BE RELEASED WITHOUT AUTHORIZATION [facility] [address], [place] [address] Signed administered and she now is to undergo exploration of the abdomen to remedy of the problem. This may require bowel resection or other interventions and she and her daughter understand this. The risk of bleeding, infection, need for a staged approach, and other unforeseen complications was reviewed with her and her daughter. They understand and wished to proceed. FINDINGS: Within the abdomen was some inflammatory fluid, but interloop adhesions were not severe other than in the area of interest in the right abdomen. A dense cicatrix of the jejunum to the right abdominal wall was noted and when broken down, showed egress of copious amounts of purulent material. Gram stain and cultures were obtained. Interloop adhesions were quite dense related to this. There were two separate bowel segments that likely had enteric leak, one in the proximal jejunum, the other in the mid to distal ileum. Both segments were resected. The more proximal one demonstrated a small hole. Other non resected loops of bowel were completely normal. Bowel continuity was restored in a [id number] (functional end-to-end) configuration by a stapled technique. Additionally noted was an intramural abdominal wall abscess associated with old hematoma. A defect related to the trocar and fistulous tract closed. All remaining bowel segments were completely healthy and without signs of enteric drainage or other problem. A jarad drain was placed at conclusion within the abdomen and a wound vac device used in the subcutaneous lateral wall defect. DESCRIPTION OF PROCEDURE: The patient was brought to the operating room, given a general endotracheal anesthetic. Preoperative antibiotics, Levaquin and Flagyl, had been given. Sequential compression device stockings were used. A Lopez catheter was placed. After satisfactory general endotracheal anesthesia, the abdomen was prepared with a chlorhexidine solution and draped sterilely. Palpation of the right abdominal wall showed a subcutaneous mass beneath the right midclavicular trocar site; this was not the most lateral port, it is noted. An incision was made above and below the umbilicus and later extended somewhat. Upon entry to the abdomen, interloop adhesions were noted. They were not fixed or too problematic and the bowel in the mid abdomen apppeared soft and relatively normal. Palpation on the right side of peritoneal cavity showed a rock hard aggregation of small bowel loops that were densely adherent to the abdominal wall. The bowel loops were gently broken down away from the abdominal wall with finger dissection predominantly and ultimately the right-sided process was freed. A large abscess with copious amounts of thick purulent material was then encountered. This was Gram stained and cultured. The bowel was sequentially freed up with blunt dissection and explanted from the abdominal cavity. The abdominal wall was palpated and had a ballotable mass. The healed trocar site on the lateral aspect of the abdominal wall was incised and entered thus draining copious amounts of purulence as well as Electronically Signed By: AURELIA PYLE MD 03/01/24 1135 PATIENT NAME: AUDRA OROZCO TARAS OPERATIVE REPORT DATE OF : 55 REPORT #: [id number] PHYSICIAN: AURELIA PYLE MD PCP: KARLA AZAR MD REPORT IS CONFIDENTIAL AND NOT TO BE RELEASED WITHOUT AUTHORIZATION [facility] [address], [place] [address] Signed an old hematoma. This subcutaneous wound was temporarily packed. Attention was returned to the peritoneal cavity. A bookwalter retracter was affixed to the table and provied good intra abdominal exposure. The small bowel loops were gently freed from interloop adhesions predominantly with blunt dissection, but also with sharp dissection as necessary. The entry point and exit point of the thickened process of the bowel was carefully defined explanting essentially all of the bowel from the abdominal cavity. The firm and mucoid fistulous tract was identified between the mesenteric leaves and segments of bowel and this was more fully characterized. There were two segments in total that had significant changes, though there was no sign of actual bile leakage in any area. The two areas most likely having suffered enteric leakage were isolated and marked with a silk suture. One was in the proximal jejunum, the other in the distal ileum. Irrigation was undertaken and the bowel examined multiple times from the ligament of Treitz to terminal ileum to assure there were no other areas of concern. The right colon was additionally examined and although somewhat mobile, was completely normal in every way without sign of perforation or other problem. Palpation within the pelvis showed no sign of abscess, and there was surgical absence of the uterus. Plans were made for definitive resection of the two segments of bowel, which appeared suspect for the sites of recent perforation. In the proximal jejunum, the mesentery was scored with electrocautery and the mesenteric vessels secured with 0 silk ties. A 60 mm GABBIE stapling device was used to transect the bowel isolating the offending segment and passing it for pathology. A [id number] stapled anastomosis was then undertaken with a GABBIE stapling device 80 mm in length. The open Anvil site was closed manually with interrupted 3-0 Vicryl in the mucosal layer and interrupted 3-0 silk in the serosal layer. The mesentery defect was similarly reapproximated with interrupted 3-0 silk suture. In the distal bowel, essentially the ileum, but at least 1 foot proximal to the ileocecal valve, the other area with firm fibrotic changes and likely associated with the enterocutaneous fistula (presumptive) was similarly isolated, divided and anastomosed again with a [id number] functional end-to-end technique using a GABBIE stapling device, 80 mm in length. Closure of the anvil sites was once again peformed manually with interrupted vicryl and serosal silk closure. The mesenteric defects were secured. Copious irrigation was undertaken throughout the abdomen. The abdominal wall was more fully examined and the boggy area of egress of purulence was better defined. The small incision in the right lateral abdominal wall was then incised more fully with electrocautery revealing a bit more purulence and definitely an old hematoma A fascial defect was noted probably from the trocar site. This was Electronically Signed By: AURELIA PYLE MD 03/01/24 1135 PATIENT NAME: AUDRA OROZCO OPERATIVE REPORT DATE OF : 55 REPORT #: [id number] PHYSICIAN: AURELIA PYLE MD PCP: KARLA AZAR MD REPORT IS CONFIDENTIAL AND NOT TO BE RELEASED WITHOUT AUTHORIZATION [address] [address] Signed irrigated and then closed with interrupted PDS suture. Irrigation was undertaken more fully until the subcutaneou abscess site was fully cleaned up. The omentum was freed and allowed to cover the intraabdominal viscera more fully. Through a right lower quadrant stab incision, a 7 mm flat Jarad drain was placed in proximity to the upper anastomosis. The omentum was replaced over the abdominal contents and the midline fascia was then reapproximated with running bidirectional #1 PDS suture. Subcutaneous tissue was irrigated as was the right abdominal wall wound. The skin was then closed with running subcuticular 3-0 Vicryl for the skin in the midline and a wound VAC device applied to the subcutaneous defect in the right mid abdomen. A TAP block analgesic intervention was then undertaken by the mule packer for postoperative pain control. She tolerated procedure well. Blood loss was less than 100 mL. Sponge, needle, and instrument counts reported as correct x3. MD SRIDHAR Ramos/MODL /[id number] cc: DO Karla Ramesh MD Jim Gosewehr, MD Patrick G McBee, MD Copies: OLLIE GREGG (FAVIO) JAYCOB TAYLOR MD, PATRICK G MD ~ Electronically Signed By: AURELIA PYLE MD 03/01/24 1135 PATIENT NAME: AUDRA OROZCO TARAS OPERATIVE REPORT DATE OF : 55 REPORT #: [id number] PHYSICIAN: AURELIA PYLE MD PCP: KARLA AZAR MD REPORT IS CONFIDENTIAL AND NOT TO BE RELEASED WITHOUT AUTHORIZATION
[2024-03-01] MEDS ORDERED: POTASSIUM CHLORIDE 10 MEQ TABCR PO SCH (12:00)
--- NOTE | 2024-03-01 12:33 | NUR ---
WIGGINS DISCONTINUED ORDERED. 250ML IN BAG.
--- NOTE | 2024-03-01 13:57 | NUR ---
PT VOIDS SUCCESSFULLY. PT CURRENTLY UP AND AMBULATING WITH FWW AND DAUGHTER IN HALLWAYS.
--- NOTE | 2024-03-01 14:39 | NUR ---
PATIENT IS RAISING CONCERN ABOUT BEING TOO WEAK TO GO HOME, ASKING STAFF ABOUT A "RESPITE PROGRAM." SPOKE WITH PATIENT AND DAUGHTER ABOUT SNF PROGRAMS. CURRENTLY SHE HAS NOT HAD ANY PT/OT ORDERED. SHE ALSO HAS BEEN AMBULATING IN HALLWAY WITH DAUGHTER USING WALKER. UNSURE IF A SNF WOULD ACCEPT HER WHERE SHE IS AT THE MOMENT. NOTED, SHE HAS A WOUND VAC AT THIS TIME. SENT A TEXT TO DR. PYLE REQUESTING PT EVAL AND ASK IF PATIENT IS TO BE SENT HOME WITH WOUND VAC SO ONE CAN BE ORDERED. CHOCO TURK, UPDATED.
--- NOTE | 2024-03-01 14:46 | NUR ---
PT REQUESTING RESPITE CARE UPON DISCHARGE. ANNETAT IN CASE MANAGEMENT NOTIFIED AND VISITS WITH PT.
--- NOTE | 2024-03-01 15:05 | NUR ---
SECOND ASSESSMENT COMPLETE. PT IS RESTING IN BED AT THIS TIME, RR EVEN AND UNLABORED. MIDLINE AND RLQ DRESSINGS ARE UNCHANGED FROM THIS MORNING, WENDY DRAIN STRIPPED AND DRAINED OF 30ML SEROSANGUINOUS FLUID. BOWEL SOUNDS ARE ACTIVE, PT HAS BEEN HAVING MULTIPLE SEMI-LIQUID STOOLS TODAY. IV IN R AC AND R WRIST FLUSH WNL. DAUGHTER PRESENT ON COUCH THROUGHOUT. NO OTHER NEEDS AT THIS TIME, CALL LIGHT LIGHT IN REACH.
--- NOTE | 2024-03-01 16:41 | NUR ---
PT HAS MULTIPLE VISITORS PRESENT AT THIS TIME. CALL LIGHT IN REACH.
--- NOTE | 2024-03-01 17:55 | NUR ---
PT REQUESTS THAT HER PO POTASSIUM BE CRUSHED. VERIFIED WITH BURTON IN PHARMACY THAT THIS WAS APPROPRIATE FOR THIS MEDICATION. PT TAKES CRUSHED MEDICATION IN PUDDING. PT HAS SEVERAL VISITORS PRESENT IN ROOM WITH HER, NO REQUESTS AT THIS TIME, CALL LIGHT IN REACH.
--- NOTE | 2024-03-01 18:22 | NUR ---
PRN PAIN MEDICATION ADMINISTERED, SEE MAR. PT AMBULATES WITH FWW TO RECLINER ASSISTED BY DAUGHTER. SHE HAS NO REQUESTS AT THIS TIME, CALL LIGHT IN REACH, MULTIPLE VISITORS PRESENT IN ROOM.
--- NOTE | 2024-03-01 19:23 | NUR ---
PATIENT ASKED FOR A WARM BLANKET.
--- NOTE | 2024-03-01 19:31 | NUR ---
REPORT RECIEVED FROM DAY SHIFT RN. PATIENT RESTING IN BED, DENIES NEEDS AT THIS TIME. CALL LIGHT IN REACH.
--- NOTE | 2024-03-01 19:55 | NUR ---
PT DONE USING BATHROOM. BIODIESEL PRODUCT MANAGER ASSISTED PT PUTTING ON CLEAN BREIF. PT ASSISTED BACK TO THE CHAIR. PT GIVEN ICE CHIPS. OUTPUT MEASURED. PT STATES NO FURTHER NEEDS AT THIS TIME. CALL LIGHT WITHIN REACH AND FAMILY MEMBER IN ROOM.
--- NOTE | 2024-03-01 20:40 | NUR ---
PT WALKED HALLWAY WITH DAUGHTER. ONCE PT WAS BACK IN ROOM AND IN BED, BIOINFORMATICS SOFTWARE ENGINEER OBTAINED AND DOCUMENTED VITALS AND I&O. PT STATES NO FURTHER NEEDS AT THIS TIME. CALL LIGHT WITHIN REACH.
[2024-03-01] MEDS ORDERED: FAMOTIDINE 20 MG TAB PO SCH (21:00)
--- NOTE | 2024-03-01 21:04 | NUR ---
PATIENT RESTING IN BED. SCHEDULED MEDICATION ADMINISTERED. NEW BAG IV ABX INFUSING PER ORDER. NEW BAG IV FLUID INFUSING PER ORDER. ASSESSMENT COMPLETE. ABD DRESSINGS C/D/I WITH MINIMAL DRY DRAINAGE. WOUND VAC IN PLACE. SCDs IN PLACE. IVs FLUSH WNL. PATIENT DENIES FURTHER NEEDS AT THIS TIME. CALL LIGHT IN REACH.
--- NOTE | 2024-03-01 21:57 | NUR ---
CALL LIGHT ANSWERED. PT NEEDED TO USE BATHROOM. BEACH PATROL LIEUTENANT 1PA TO BATHROOM. PT VOIDED AND BRUSHED TEETH. PT BEGAN DRY HEAVING. BEACH PATROL LIEUTENANT GAVE PT EMESIS BAG AND PT STATED SHE WOULD LIKE TO SIT IN THE CHAIR FOR BIT. BEACH PATROL LIEUTENANT ASSISTED PT TO CHAIR. RN NOTIFED ABOUT DRY HEAVING. PT STATES NO FURTHER NEEDS AT THIS TIME. CALL LIGHT WITHIN REACH.
--- NOTE | 2024-03-01 22:17 | NUR ---
PATIENT REPORTING NAUSEA. PRN NAUSEA MEDICATION ADMINISTERED. SCHEDULED IV ABX INFUSING PER ORDER. PATIENT HAS NO FURTHER NEEDS. CALL LIGHT IN REACH.
--- NOTE | 2024-03-01 22:35 | NUR ---
CALL LIGHT ANSWERED. PT STATED THAT SHE WAS READY TO GET BACK INTO BED. PT THEN STATED THAT SHE NEEDED TO USE THE BATHROOM. MILL CRANE OPERATOR 1PA WITH FWW TO BATHROOM. PT VOIDED AND ASSISTED BACK TO BED. OUTPUT MEASURED. PT STATES NO FURTHER NEEDS AT THIS TIME. CALL LIGHT WITHIN REACH.
--- NOTE | 2024-03-01 23:30 | NUR ---
PATIENT AMBULATING DRIVER USING FWW WITH DAUGHTER AT THIS TIME.
[2024-03-02] VITALS (10 sets, daily range): BP systolic 109–141; BP diastolic 44–57
--- NOTE | 2024-03-02 00:44 | NUR ---
PATIENT RESTING IN BED WITH EYES CLOSED. RESPIRATIONS EVEN AND UNLABORED. CALL LIGHT IN REACH.
--- NOTE | 2024-03-02 02:54 | NUR ---
PATIENT RESTING IN BED ON BACK WITH EYES CLOSED. RESPIRATIONS EVEN AND UNLABORED. CALL LIGHT IN REACH.
[2024-03-02 05:37] LABS: BASOPHILS 0.4 % (0-2); EOSINOPHILS 0.5 % (0-6); HEMATOCRIT 31.3 % (35.0-50.0); HEMOGLOBIN 10.6 g/dL (12.0-18.0); LYMPHOCYTES 10.1 % (24-44); MCH 31.1 (27-36); MCHC 33.8 g/dl (30-36); MONOCYTES 6.9 % (0-12); NEUTROPHILS 82.1 % (39-80); PLATELET COUNT 310 K/uL (140-440); RDW 14.1 (10.5-15.0)
[2024-03-02 05:51] LABS: ANION GAP 11.8 (7-21); BUN/CREATININE RATIO 7.36 (6.0-28.6); CREATININE, SERUM 0.95 mg/dL (0.55-1.02); POTASSIUM 3.8 mmol/L (3.5-5.1)
--- NOTE | 2024-03-02 06:06 | NUR ---
PATIENT RESTING IN BED. DENIES NEEDS AT THIS TIME. SCHEDULED IV ABX INFUSING PER ORDER. PATIENT HAS NO FURTHER NEEDS. CALL LIGHT IN REACH.
--- NOTE | 2024-03-02 06:51 | NUR ---
CALL LIGHT ANSWERED. PATIENT REPORTS NAUSEA. PRN NAUSEA MEDICATION ADMINSITERED. NO FURTHER NEEDS. CALL LIGHT IN REACH
--- NOTE | 2024-03-02 07:10 | NUR ---
REPORT RECEIVED FROM CHOCO ALVAREZ. PT UP IN RECLINER, REPORTS SHE IS FEELING NAUSEATED. PRN NAUSEA MEDICATION ADMINISTERED AT 0651 PER MAR. DAUGHTER IS PRESENT ON COUCH. CALL LIGHT IN REACH, NO OTHER REQUESTS AT THIS TIME.
--- NOTE | 2024-03-02 07:15 | NUR ---
DISCUSSED WITH DR. PYLE PATIENT QUESTIONS REGARDING SNF. NO SNF NEEDS. PT EVAL AND TREAT ORDERED.
--- NOTE | 2024-03-02 07:34 | NUR ---
ICE CHIPS AND CRANBERRY JUICE PROVIDED AT THIS TIME. PT AMBULATING TO RECLINER AFTER USING RESTROOM. CALL LIGHT IN REACH, DAUGHTER PRESENT IN ROOM, NO OTHER NEEDS AT THIS TIME.
--- NOTE | 2024-03-02 09:12 | NUR ---
MEDICATIONS ADMINISTERED, SEE MAR. MD IS PRESENT IN ROOM, ASSESSING PT AND ANSWERING ALL QUESTIONS. PT IS UP IN RECLINER, DAUGHTER IS PRESENT ON THE COUCH. PRN NAUSEA MEDICATION ALSO ADMINISTERED, SEE MAR. PT SWALLOWS PO MEDICATIONS WITHOUT ISSUE. NO OTHER REQUESTS AT THIS TIME, CALL LIGHT IN REACH, DAUGHTER REMAINS AT BEDSIDE.
--- NOTE | 2024-03-02 10:40 | NUR ---
PT IN BED WITH HOB ELEVATED AND RESTING WITH EYES CLOSED, RR EVEN AND UNLABORED. PT PREVIOUSLY WALKED A LAP IN THE HALLWAY WITH HER DAUGHTER. IVF INFUSING WNL. DAUGHTER PRESENT IN ROOM AT THIS TIME. CALL LIGHT IN REACH.
--- NOTE | 2024-03-02 11:21 | NUR ---
PATIENT IS FEELING MORE COMFORTABLE WITH GOING HOME KNOWING SHE WILL NOT HAVE DRAIN OR WOUND VAC AT DISCHARGE. PLANS TO DC TO HOME WHEN READY. PT/OT RECOMMEND HOME HEALTH. PATIENT PREFERS TO USE [facility] [place] WILL SEND ORDERS, FACESHEET, H&P AND DC SUMMARY AT DISCHARGE TO [facility].
--- NOTE | 2024-03-02 11:39 | NUR ---
ASSESSMENT COMPLETE. PT IS UP IN RECLINER AT THIS TIME, MULTIPLE VISITORS PRESENT. PTs IV IN HER R WRIST IS LEAKING WHEN TRYING TO FLUSH, IV REMOVED WNL, CATH INTACT, SITE WRAPPED IN GAUZE AND COBAN, PT EDUCATED ON REMOVAL. PT REPORTS INCISONAL PAIN IS A 4/10. PRN PAIN MEDICATION SUPPLIED, PT REQUESTS THIS TO BE CRUSHED AND PUT IN PUDDING - PROVIDED. ICE PACK TO MIDLINE INCISION ALSO PROVIDED. PTAMBULATES FROM RECLINER TO COUCH, RESTING WITH DAUGHTER AT HER SIDE. MIDLINE INCISION IS DRY AND INTACT, HAS SHADOWING THAT IS UNCHANGED FROM YESTERDAY. WENDY DRAIN TUBING IS STRIPPED AT THIS TIME, DRAINAGE IS SEROSANGUINOUS. PT HAS NO OTHER REQUESTS AT THIS TIME, CALL LIGHT IN REACH, DAUGHTER REMAINS IN ROOM WITH HER.
--- NOTE | 2024-03-02 12:04 | EKG ---
[facility] [address] [facility] [place], [place] [address] Signed Sinus bradycardia Otherwise normal ECG No previous ECGs available Confirmed by Juan Choi MD ([id number]) on 03/02/2024 12:04:42 PM Electronically Signed By: JUAN CHOI 03/02/24 1204 PATIENT NAME: AUDRA OROZCO TARAS Electrocardiogram DATE OF : 55 PHYSICIAN: JUAN CHOI REPORT #: [id number] REPORT IS CONFIDENTIAL AND NOT TO BE RELEASED WITHOUT AUTHORIZATION
--- NOTE | 2024-03-02 13:18 | NUR ---
PT REQUESTING HER SOUP BE HEAT UP, DOLLY BARRETT ASSISTING WITH THIS AT THIS TIME. PT IS UP IN HER RECLINER WITH LUNCH BEFORE HER, DAUGHTER PRESENT IN ROOM.
--- NOTE | 2024-03-02 14:54 | NUR ---
SECOND ASSESSMENT COMPLETE. MIDLINE AND WENDY DRESSINGS REMAIN UNCHANGED FROM THIS MORNING. WENDY TUBING STRIPPED, 40ML OF SEROSANGUINOUS FLUID DRAINED, SUCTION REAPPLIED. WOUND VAC REMAINS IN PLACE AND ON SUCTION. IV TO R AC FLUSHES WNL. PT HAS ACTIVE BOWEL TONES IN ALL FOUR QUADRANTS AND CURRENTLY HAS NO COMPLAINTS OF NAUSEA. REPORTS SHE IS TOLERATING THE FULL LIQUID DIET WELL. VS AND I&Os ALSO RECORDED AT THIS TIME WITH RICO AYALA. PT AMBULATES TO RESTROOM WITH SBA AND FWW AND THEN GOES TO HER RECLINER. PT REPORTS SHE HAS NO PAIN AT THIS MOMENT. NO OTHER REQUESTS AT THIS TIME, CALL LIGHT IN REACH, DAUGHTER PRESENT IN ROOM THROUGHOUT.
--- NOTE | 2024-03-02 16:39 | NUR ---
PT RESTING IN BED, VISITORS JUST LEAVING AT THIS TIME. PT AMBULATES TO RESTROOM WITH FWW AND LINE MANAGEMENT ONLY. PT SITS IN HER RECLINER, BLE ELEVATED, WARM BLANKETS PROVIDED, FRESH ICE WATER PROVIDED. PT HAS NO OTHER REQUESTS AT THIS TIME. PTs DAUGHTER AND SIGNIFICANT OTHER ARE IN ROOM AT THIS TIME. CALL LIGHT IN REACH.
--- NOTE | 2024-03-02 18:37 | NUR ---
PT RESTING IN BED ON CELL PHONE, DAUGHTER PRESENT ON COUCH IN ROOM. PT REPORTS THAT SHE USED THE RESTROOM AND HAD A BOWEL MOVEMENT THAT FELT "A LITTLE THICKER THIS TIME". PT EXPRESSED INTEREST IN GOING HOME AT THIS TIME, ALSO SOME NERVES ABOUT IT. THERAPEUTIC COMMUNICATION PROVIDED. PT HAS NO REQUESTS AT THIS TIME, CALL LIGHT IN REACH, DAUGHTER REMAINS IN ROOM.
--- NOTE | 2024-03-02 19:32 | NUR ---
REPORT RECIEVED FROM DAY SHIFT RN. PATIENT RESTING IN CHAIR WITH DAUGHTER IN ROOM. PATIENT DENIES NEEDS AT THIS TIME. CALL LIGHT IN REACH.
--- NOTE | 2024-03-02 20:54 | NUR ---
PATIENT RESTING IN CHAIR. VS AND I&Os OBTAINED AND RECORDED. 20 mL OF SEROSANGUINEOUS DRAINAGE OUTPUT NOTED. ASSESSMENT COMPLETE. ABD DRESSINGS C/D/I WITH MINIMAL DRY DRAINAGE. WOUND VAC IN PLACE. IV ABX INFUSING PER ORDER. SCHEDULED MEDICATION ADMINISTERED. PATIENT HAS NO FURTHER NEEDS. CALL LIGHT IN REACH.
--- NOTE | 2024-03-02 22:04 | NUR ---
PATIENT RESTING IN BED. SCHEDULED IV ABX INFUSING PER ORDER. ICE CHIPS PROVIDED PER PATIENT REQUEST. PATIENT HAS NO FURTHER NEEDS. CALL LIGHT IN REACH.
--- NOTE | 2024-03-02 22:34 | NUR ---
CALL LIGHT ANSWERED. PT NEEDED TO USE BATHROOM. PT ASSISTED TO BATHROOM WITH FWW BY DAUGHTER. DAUGHTER ABLE TO ASSIST PT IN BATHROOM. PT AND DAUGHTER INSTRUCTED TO CALL IF HELP IS NEEDED.
--- NOTE | 2024-03-02 22:52 | NUR ---
PATIENT REPORTING NAUSEA. PRN NAUSEA MEDICATION ADMINSITERED. PATIENT HAS NO FURTHER NEEDS. CALL LIGHT IN REACH.
--- NOTE | 2024-03-02 23:49 | NUR ---
CALL LIGHT ANSWERED. PATIENT REPORTING 8/10 ABD PAIN. PRN PAIN MEDICATION ADMINISTERED. PATIENT HAS NO FURTHER NEEDS. CALL LIGHT IN REACH.
[2024-03-03] VITALS (9 sets, daily range): BP systolic 120–135; BP diastolic 51–66
--- NOTE | 2024-03-03 01:33 | NUR ---
CALL LIGHT ANSWERED. PT STATED THAT SHE NEEDED TO USE THE BATHROOM. OIL WELL DIRECTIONAL SURVEYOR 1PA TO BATHROOM WITH FWW. PT VOIDED AND ASSISTED BACK TO BED. PT STATES NO FURTHER NEEDS AT THIS TIME. CALL LIGHT WITHIN REACH AND DAUGHTER IN ROOM.
--- NOTE | 2024-03-03 04:34 | NUR ---
CALL LIGHT ANSWERED. PT NEEDED TO USE BATHROOM. COMMUNITY HEALTH WORKER 1PA WITH FWW TO BATHROOM. PT VOIDED AND BRUSHED TEETH. PT ASSISTED BACK TO BED. PT STATES NO FURTHER NEEDS AT THIS TIME. CALL LIGHT WITHIN REACH.
--- NOTE | 2024-03-03 07:00 | NUR ---
REPORT RECEIVED FROM CHOCO ALVAREZ. WOUND VAC EXAMINED TOGETHER, DRAINAGE NOTED IN TUBING AND MOTOR HEARD FROM WOUND VAC, UNCLEAR IF IT IS ACTIVELY SUCTIONING AT THIS TIME. CHARGE NURSES ARE AWARE. PT IS RESTING IN BED, AWAKE AND ALERT. DAUGHTER IS PRESENT IN ROOM AT BEDSIDE ALSO. NO NEEDS AT THIS TIME, CALL LIGHT IN REACH.
--- NOTE | 2024-03-03 07:38 | NUR ---
WOUND VAC EXAMINED AGAIN, DRAINAGE NOTED BEING SUCTIONED IN TUBING, WOUND VAC DRESSING IS STILL COMPRESSED TO WOUND. WOUND VAC EQUIPMENT HAS BEEN WRAPPED WITH COBAN TO REINFORCE SEAL FOR THE TIME BEING.
--- NOTE | 2024-03-03 08:18 | NUR ---
MORNING MEDICATIONS ADMINISTERED, SEE MAY. ASSESSMENT COMPLETE. PT IS UP IN HER RECLINER AT THIS TIME. SHE REPORTS HER INCISIONAL PAIN IS A 6/10, PRN PAIN MEDICATION (IBUPROFEN) ADMINISTERED. PT SWALLOWS MEDICATION WITHOUT ISSUE. PT HAS 1+ PITTING EDEMA TO BILAT LOWER EXTREMETIES, ENCOURAGED PT TO ELEVATE OFTEN SHE CAN, TWO PILLOWS PLACED BENEATH PTs BLE IN RECLINER AT THIS TIME. BOWEL TONES ARE ACTIVE IN ALL FOUR QUADRANTS, PT HAS NO COMPLAINTS OF NAUSEA THIS MORNING. WOUND VAC CONTINUES TO APPEAR TO HAVE SUCTION AT THIS TIME. PT EXPRESSES INTEREST IN GOING HOME SOON, SHE IS IN GOOD SPIRITS THIS MORNING. PT EXPRESSES SOME CONCERN REGARDING URINARY FREQUENCY WELL HER LOOSE STOOLS AT THIS TIME. THERAPEUTIC COMMUNICATION AND EDUCATION PROVIDED, PT AND PT DAUGHTER VERBALIZE UNDERSTANDING. BREAKFAST TRAY ARRIVES, PT HAS NO OTHER NEEDS AT THIS TIME. CALL LIGHT IN REACH.
[2024-03-03] MEDS ORDERED: CIPROFLOXACIN 500 MG TAB PO SCH (09:00)
--- NOTE | 2024-03-03 09:15 | NUR ---
RN IN ROOM TO ATTEND TO ALARMING IV PUMP - SITE APPEARS INFILTRATED WITH EDEMA, PAIN AND ITCHING AT SITE. IV REMOVED, CATH INTACT. PT DIFFICULT IV START, REQUIRING US WITH PREVIOUS STARTS. IVF AND ABX DC'D AND CHANGED TO ORAL THIS AM. ATTEMPT TO CALL MD MADE TO REVIEW NEED FOR IV ACCESS, WENT TO [employer], WILL ATTEMPT AGAIN.
--- NOTE | 2024-03-03 11:10 | NUR ---
PT AMBULATING IN HALLWAY WITH DAUGHTER AT THIS TIME. ASKS THIS NURSE IF SCDs WOULD BE HELPFUL FOR THE EDEMA IN HER BLE. EDUCATION PROVIDED, PT ENCOURAGED TO USE SCDs FOR BOTH EDEMA AND DVT PROPHYLAXIS. PT VERBALIZES UNDERSTANDING OF THIS PLAN. PT AND DAUGHTER REMAIN AMBULATING IN HALLWAYS.
--- NOTE | 2024-03-03 12:18 | NUR ---
THIS RN SPENDS APPROXIMATELY 25 MINUTES WITH PT AND PTs DAUGHTER WHILE PTs DAUGHTER DEMONSTRATES HOW TO CHANGE PTs DRESSINGS. PTs DAUGHTER CHANGES DRESSINGS ORDERED, ANY QUESTIONS SHE HAS ARE ANSWERED AT THIS TIME, DRESSING CHANGE IS DONE WELL. PT HAS QUESTIONS REGARDING PAIN CONTROL PRIOR TO DRESSING CHANGES AT HOME, PT EDUCATED ON TYLENOL AND IBUPROFEN USE AFTER DISCHARGE, PT ALSO EDUCATED THAT PHARMACY WILL BE SPEAKING WITH HER BEFORE SHE DISCHARGES. PT AND PTs DAUGHTER VERBALIZE UNDERSTANDING OF WOUND ORDERS AND MEDICATIONS. PT LUNCH TRAY ARRIVES, PT EXPRESSES FEELING NERVOUS TRYING SOLID FOODS BUT ALSO EXCITEMENT. PT AMBULATES TO RECLINER AT THIS TIME WITH SBA ONLY, NO FWW. PT IS STABLE ON HER FEET. PT BEGINS TO EAT LUNCH. DAUGHTER REMAINS IN ROOM, NO OTHER NEEDS AT THIS TIME, CALL LIGHT IN REACH.
--- NOTE | 2024-03-03 13:42 | NUR ---
PT RESTING IN BED WITH SCDs IN PLACE AND BLE ELEVATED. PT AMBULATES WITH SBA ONLY TO RESTROOM AND THEN TO RECLINER. SHE REQUESTS WARM BLANKETS FOR HER LAP AND SHOULDERS - PROVIDED. PT EXPRESSES GRIEF OVER HER SON SHE LOST 26 YEARS AGO TOMORROW, THERAPEUTIC COMMUNICATION AND LISTENING PROVIDED AT THIS TIME. PT HAS NO OTHER NEEDS, CALL LIGHT IN REACH.
[2024-03-03] MEDS ORDERED: metroNIDAZOLE 250 MG TAB PO SCH (14:00)
--- NOTE | 2024-03-03 14:56 | NUR ---
PT UTILIZES RESTROOM INDEPENDENTLY. SHE HAS NO REQUESTS AT THIS TIME.
--- NOTE | 2024-03-03 19:48 | NUR ---
REPORT RECEIVED FROM DAY SHIFT RN. PT SITTING IN RECLINER ALERT AND ORIENTED. REPORTS BACK PAIN 10/14. PRN FOR PAIN ADMIN PER EMAR. NO FURTHER NEEDS. CALL LIGHT IN REACH.
--- NOTE | 2024-03-03 21:13 | NUR ---
EVENING ASSESSMENT COMPLETE. SCHEDULED MEDS ADMIN PER EMAR. NO C/O PAIN OR NAUSEA AT THIS TIME. SNACK PROVIDED WITH PO ABX. MIDLINE ABD INCISION WITH STERI STRIPS INTACT. OLD DRAINAGE NOTED. RUQ DRESSING INTACT WITH SCANT AMOUNT OLD DRAINAGE. BANDAIN IN RLQ INTACT WITH SCANT AMOUNT OLD DRAINAGE. BOWEL TONES ACTIVE. ABD SOFT. PT REPORTS LOOSE BM X [address] THIS [address]CD'[address] PLACE. BLE ELEVATED ON PILLOWS. DAUGHTER AT BEDSIDE. NO FURTHER NEEDS. CALL LIGHT IN REACH.
--- NOTE | 2024-03-03 22:45 | NUR ---
PT AWAKE IN BED. NO C/O PAIN OR NAUSEA. SCHEDULED MEDS ADMIN PER EMAR. NO NEEDS AT THIS TIME. DAUGHTER TO STAY THE NIGHT.
--- NOTE | 2024-03-04 00:22 | NUR ---
CALL LIGHT ANSWERED. WARM BLANKET PROVIDED. PT REPORTS NOT BEING ABLE TO SLEEP AND FEELING "WORRIED" ABOUT TAKING MORE PILLS. ZOFRAN ODT ADMIN PER REQUEST.
[2024-03-04] MEDS ORDERED: ONDANSETRON 4 MG TAB ODT SL PRN (00:30)
--- NOTE | 2024-03-04 00:48 | NUR ---
PT UP TO BR TO VOID 150 ML YELLOW URINE. GAIT STEADY. BACK TO BED, MING WELL. SCD TO RIGHT LEG, PT UNABLE TO TOLERATE LEFT LEG DUE TO LEONG PAIN. BLE ELEVATED ON PILLOWS. WARM BLANKET PROVIDED. NO FURTHER NEEDS.
--- NOTE | 2024-03-04 01:31 | NUR ---
PT UTILIZES CALL LIGHT, REQUESTS TO USE THE BATHROOM. PT UP TO BATHROOM AND BACK TO BED WITH SBA. TOLERATED WELL. STATES THAT SHE WAS FINALLY ABLE TO GET TO SLEEP. DENIES FURTHER NEEDS AT THIS TIME. CALLLIGHT IN REACH. DAUGHTER ASLEEP AT BEDSIDE.
--- NOTE | 2024-03-04 02:36 | NUR ---
PT REPORTS BILAT LEG DISCOMFORT. BLE EDEMA NOTED. PRN FOR PAIN ADMIN PER EMAR. BIGGER SOCKS PROVIDED. BLE ELEVATED WITH PILLOWS X 3 IN THE BED. PT REPORTS SHE IS COMFORTABLE AT THIS TIME. ABD ASSESSMENT UNCHANGED. PT DENIES ABD PAIN OR NAUSEA. NO FURTHER NEEDS. DAUGHTER AT BEDSIDE.
--- NOTE | 2024-03-04 03:39 | NUR ---
EMS EDUCATOR HELP PT TO THE BATHROOM AND BACK TO BED. EMS EDUCATOR LEFT PT WITH A WARM BLANKET AND CALL LIGHT IN REACH
[2024-03-04 05:49] VITALS: BP 136/57
--- NOTE | 2024-03-04 08:34 | NUR ---
patient ambulating halls with daughter
[2024-03-04 09:11] VITALS: BP 121/51
--- NOTE | 2024-03-04 09:26 | NUR ---
AM ASSESSMENT COMPLETE - PT STATES SHE FEELS IMPROVED FROM YESTERDAY AND EXCITED TO DC HOME. PAIN WELL CONTROLLED WITH IBP AND TYLENOL. NO NAUSEA REPORTED. PT HAVING SMALL BM'S, AMBULATING TO AND FROM BATHROOM WITHOUT DIFFICULTY. DAUGHTER AT BEDSIDE AND ENGAGED IN CARE, UPDATED ON POC FOR DAY.
--- NOTE | 2024-03-04 10:50 | NUR ---
PT BACK TO BED FROM SHOWER, DAUGHTER DEMONSTRATES ABILITY TO PACK WOUND WITH GAUZE PROPERLY. SUPPLIES FOR DRESSING CHANGES GATHERED FOR PT'S DOMINGUEZ.
--- NOTE | 2024-03-04 12:09 | NUR ---
TYLENOL ADMINISTERED PER PT REQUEST. APPETITE IMPROVING FROM YESTERDAY AT THIS LUNCH MEAL.
[2024-03-04] MEDS ORDERED: CIPROFLOXACIN500 MG PO (13:14)
[2024-03-04] MEDS ORDERED: METRONIDAZOLE250 MG PO (13:14)
[2024-03-04] MEDS ORDERED: IBUPROFEN600 MG PO (13:14)
[2024-03-04] MEDS ORDERED: FAMOTIDINE20 MG PO (13:15)
[2024-03-04] MEDS ORDERED: ACETAMINOPHEN500 MG PO (13:15)
--- NOTE | 2024-03-04 14:29 | NUR ---
ADVIL ADMINISTERED PER PT REQUEST WITH ABX DOSE. DC HOME EDUCATION PROVIDED INCLUDING WOUND DRESSING PACKING AND LOW FIBER DIET. ALL QUESTIONS ANSWERED AND PT AND DAUGHTER STATE UNDERSTANDING. VS WNL.
[2024-03-04 14:45] VITALS: BP 135/66
--- NOTE | 2024-03-06 10:18 | PATH ---
[facility] [address], [place] [address] Signed SPECIMEN(S): A SEGMENT OF JEJUNUM SPECIMEN(S): B SEGMENT OF ILEUM SPECIMEN SOURCE: A. SEGMENT OF JEJUNUM B. SEGMENT OF ILEUM CLINICAL HISTORY: Intra-abdominal abscess FINAL PATHOLOGIC DIAGNOSIS: A. Jejunum, segmental resection: - Small bowel mucosa with serositis; surgical margins appear viable B. Ileum, segmental resection: - Small bowel mucosa with serositis and abscess formation, focally extending to the surgical margin BRP MICROSCOPIC EXAMINATION: Histologic sections of all submitted blocks are examined by light microscopy. These findings, together with the gross examination, support the pathologic diagnosis. GROSS DESCRIPTION: A. The specimen, labeled and designated "Christy, S., segment of jejunum per requisition," is received in formalin and consists of 15.4 cm in length by 3.5 cm in circumference previously opened unoriented segment of small bowel with scant amount of attached mesentery. The serosal surface is ziegler-purple with areas of hemorrhage and purulent material present. The mesentery is yellow lobulated with an area of possible fat necrosis but no discrete abscess present. The mucosa is ziegler-pink with intact mucosal folds. There are no masses, polyps, or diverticuli present. Equipment Engineer sections are submitted as follows: Cassette Summary: (A1) unoriented margin #1 (A2) unoriented margin #2 (A3) area of serosal hemorrhage and possible fat necrosis B. The specimen, labeled and designated "ler, S., segment of ileum per requisition," is received in formalin and consists of a 39.8 cm and length by 4.2 cm in circumference previously opened PATIENT NAME: AUDRA OROZCO PATHOLOGY DATE OF : 55 REPORT #: [id number] PHYSICIAN: RAJ SANTILLAN PCP: SUSAN WILLAMS MD REPORT IS CONFIDENTIAL AND NOT TO BE RELEASED WITHOUT AUTHORIZATION [facility] [address], [place] [address] Signed unoriented segment of small bowel with moderate amount of attached mesentery. The serosa is ziegler-pink with multiple areas of adhesions and hemorrhage. The mesentery has areas of increased fibrosis possibly representing fat necrosis but otherwise yellow lobulated unremarkable. The mucosa is ziegler-pink and edematous with intact mucosal folds. There are no masses, polyps, or diverticuli present. Represent sections are submitted follows: Cassette Summary: (B1) unoriented margins (B2-B3) mucosa with underlying mesentery AA (under the direct supervision of a pathologist) The Gross Description was prepared using a voice recognition system. The report was reviewed for accuracy; however, sound-alike word errors, addition and/or deletions may occur. If there is any question about this report, please contact Client Services. ADDITIONAL NOTES: Immunohistochemical and/or in situ hybridization studies if performed in this case included appropriate positive controls that reacted as expected. This test was developed and its performance characteristics determined by [facility]. It has not been cleared or approved by the U.S. Food and Drug Administration. The FDA has determined that such clearance or approval is not necessary. This test is used for clinical purposes. It should not be regarded as investigational or for research. [facility] is certified under the Clinical Laboratory Improvement Amendments of 1988 (CLIA) as qualified to perform high complexity clinical laboratory testing. Technical component was performed by [facility], [address] [place] [id number] (CLIA# [id number]). Professional interpretation was performed by [facility], [address] [place] [id number] (CLIA#: [id number]). Diagnostician: Real Palmer MD Pathologist Electronically Signed 03/06/2024 PATIENT NAME: AUDRA OROZCO [facility] PATHOLOGY DATE OF : 55 REPORT #: [id number] PHYSICIAN: [facility] PCP: SUSAN WILLAMS MD REPORT IS CONFIDENTIAL AND NOT TO BE RELEASED WITHOUT AUTHORIZATION
--- NOTE | 2024-03-06 11:22 | DS ---
[facility] [address], [place] [address] Signed ADMISSION DATE: 02/27/2024 DISCHARGE DATE: 03/04/2024 REASON FOR ADMISSION: Right abdominal wall abscess beneath mid clavicular abdominal trocar site with intraabdominal abscess and jejunal-cutaneous fistula. HISTORY OF PRESENT ILLNESS: This 69-year-old white woman is from [place], [place], a patient of Dr. Trace Gregg, grain picker. The patient was discovered to have uterine carcinoma and was referred to [place], [place] to Dr. Lambert, Social Services Specialist oncologist, who performed a total robotic hysterectomy without salpingo-oophorectomy a month prior to her current evaluation. She has had unremitting right-sided abdominal pain since operation. She was seen by Dr. Gregg in his clinic and found to have a palpable mass in the region of the right lower to mid abdomen directly beneath a trocar site and referred her directly to the emergency room for further evaluation, which included a CT scan. This was considered a "jejunal fistula" including a subcutaneous fluid collection and an intraabdominal fluid collection associated with a dense mass of small bowel to the right abdominal wall. Evaluation included a CBC which was essentially normal with a white count of 10.0, hematocrit 41.4, platelets 424,000. Chem 20 was abnormal for potassium of 2.8, creatinine level elevated to 1.16. Normal liver enzymes. Urinalysis abnormal for white cells of 12 to 20 per high-power field, RBCs 4 to 6 per high-power field. PERTINENT PHYSICAL EXAMINATION: GENERAL: Showed an obese white woman who looks to be nontoxic, although uncomfortable. BMI was 29.9. CHEST: Clear. HEART: Regular without murmur. ABDOMEN: Obese, but soft. There is a palpable mass beneath a right midclavicular trocar site. It was locally tender, but had not necessitated at this point. There was mild erythema, though it is not extensive and it was mildly tender. HOSPITAL COURSE: The patient underwent fluid resuscitation, broad-spectrum antibiotic administration including Levaquin and Flagyl and was considered likely to have a trocar injury to small bowel based on operative findings and her history. I spoke with her referring physician, Dr. Gregg as well as Dr. Lambert on the phone regarding all of this. On David isra on February 28, 2024, she underwent operation. This included exploration of the abdomen with drainage of an intraabdominal abscess and culture were obtained showing multiple pathogenic organisms including Proteus mirabilis. She had extensive Electronically Signed By: AURELIA PYLE MD 03/06/24 1122 PATIENT NAME: AUDRA OROZCO DISCHARGE SUMMARY DATE OF : 55 REPORT #: [id number] PHYSICIAN: AURELIA PYLE MD PCP: SUSAN WILLAMS MD REPORT IS CONFIDENTIAL AND NOT TO BE RELEASED WITHOUT AUTHORIZATION [address] [address] Signed lysis of intraabdominal small-bowel adhesions, segmental small bowel resection x2 (segment of ileum and jejunum) and drainage of abdominal wall abscess with associated old hematoma and application of wound VAC device to the abdominal wall wound defect. Postoperatively she was managed with a bilateral mid axillary tap block and bilateral subcostal tap blocks by the gas operations superintendent, Mansi Vásquez CRNA. She was kept with some bowel rest and only minimal liquids for comfort immediately postoperatively, but soon thereafter was noted to have bowel function and advanced in her diet from a clear liquid diet to a full diet and ultimately a low-fiber diet. The drain that had been placed in the abdomen was removed as it showed only serous fluid drainage-- no sign of abscess or enteric contents. The wound VAC that had been applied over the open right abdominal wall wound was removed today prior to discharge showing excellent granulation beginning and a change to wound dressing of plain sterile gauze. By day of discharge, she is ambulating well, tolerating a low-fiber solid diet. She is able to manage her own right abdominal wound dressing change with the assistance of her daughter. The midline incision is healing well. DISCHARGE PLAN: She will change her wound dressing on the right side on a daily basis and should shower daily and allow water to contact the wound itself. She will leave midline wound incision, Steri-Strips in place. She is to have a solid diet, but to avoid raw fruits and vegetables for the time being. She should walk daily and should lift no more than 20 pounds over the next four weeks. DISCHARGE MEDICATIONS: 1. Cipro 500 mg one tablet p.o. b.i.d. #10. 2. Metronidazole 250 mg p.o. t.i.d. #15. 3. Ibuprofen 600 mg p.o. q.6 hours as needed for pain #60, refill one. 4. Tylenol 500 mg two tablets p.o. q.6 hours as needed for pain #60. 5. Famotidine 20 mg p.o. b.i.d. #60, refill zero. 6. She will continue usual medication of indapamide 2.5 mg p.o. daily, amlodipine 2.5 mg p.o. daily, and Synthroid 75 mcg p.o. daily. FOLLOW UP PLAN: She will return to see me in approximately four weeks from discharge. She will call my office next week to set up an appointment. DISCHARGE DIAGNOSES: 1. 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 2. Robotic/laparoscopic hysterectomy for uterine carcinoma. [place], [place] one month Electronically Signed By: AURELIA PYLE MD 03/06/24 1122 PATIENT NAME: AUDRA OROZCO DISCHARGE SUMMARY DATE OF : 55 REPORT #: [id number] PHYSICIAN: AURELIA PYLE MD PCP: SUSAN WILLAMS MD REPORT IS CONFIDENTIAL AND NOT TO BE RELEASED WITHOUT AUTHORIZATION [facility] [address], [place] [address] Signed prior to current admission (Dr. Lambert) [place], [place]. 3. Hypothyroidism. 4. Obesity. 5. Multiple allergies (penicillin, morphine, codeine, adhesive tape, tramadol, meperidine. 6. Status post exploration of abdomen, drainage of intraabdominal abscess, segmental small bowel resection x2, drainage of abdominal wall abscess, closure of fascial defects, application of wound VAC. MD SRIDHAR Ramos/APOORVA /[id number] cc: Dr. Ezekiel Velarde [facility] [address] [place], [place] Copies: ~ Electronically Signed By: AURELIA PYLE MD 03/06/24 1122 PATIENT NAME: AUDRA OROZCO TARAS DISCHARGE SUMMARY DATE OF : 55 REPORT #: [id number] PHYSICIAN: AURELIA PYLE MD PCP: SUSAN WILLAMS MD REPORT IS CONFIDENTIAL AND NOT TO BE RELEASED WITHOUT AUTHORIZATION
== END 2024-03-04 15:00 | disposition home or self-care (01) | DRG 329 ==
LOC: ED 14:01 → MS 18:21
PROVIDERS: Emergency Medicine; ADMIT Surgery; ATTEND Surgery
PROC: 0DBB0ZZ Excision of Ileum, Open Approach (ICD-10-PCS; 2024-02-28)
PROC: 0W9F0ZZ Drainage of Abdominal Wall, Open Approach (ICD-10-PCS; 2024-02-28)
PROC: 0DBA0ZZ Excision of Jejunum, Open Approach (ICD-10-PCS; principal; 2024-02-28 12:02)
PROC: 0DN80ZZ Release Small Intestine, Open Approach (ICD-10-PCS; 2024-02-28 12:02)
DX: K63.2 Fistula of intestine (principal); K65.1 Peritoneal abscess; L02.211 Cutaneous abscess of abdominal wall; M79.81 Nontraumatic hematoma of soft tissue; E66.9 Obesity, unspecified; Z68.29 Body mass index [BMI] 29.0-29.9, adult; E03.9 Hypothyroidism, unspecified; Z88.0 Allergy status to penicillin; Z88.5 Allergy status to narcotic agent; Z88.8 Allergy status to other drugs, medicaments and biological substances; Z90.710 Acquired absence of both cervix and uterus; Z85.42 Personal history of malignant neoplasm of other parts of uterus
CPT/HCPCS: 00840; 36415; 51798; 74177; 76942; 80048; 80053; 81001; 83690; 83735; 85025; 87070; 87075; 87076; 87088; 87186; 87205; 88307; 93005; 93010; 96361; 96368; 96375; 97116; 97161; 97165; 97530; 99285-25; A9270; J0131; J0744; J0780; J1100; J1200; J1790; J1885; J1956; J2003; J2060; J2405; J2470; J2704; J2795; J3475; J3480; J3490; J7030; J7060; J7121; Q9967

== ENCOUNTER 2024-09-26 08:46 | Day surgery (SDC) | payer MEDICARE, OTHER ==
[~2024-09-26] VITALS: Ht 172.7 cm; Wt 91.0 kg
[~2024-09-26 08:46] MED LIST changes: +ACETAMINOPHEN500 MG PO; +CEFAZOLIN SODIUM 2 GM/20 ML SYR IV SCH; +CIPROFLOXACIN500 MG PO; +DEXTROSE 5% IV SCH; +FAMOTIDINE20 MG PO; +GENTAMICIN SULFATE IV SCH; +IBLOOD GLUCOSE TEST STRIP 1 EA TEST VI PRN; +IBUPROFEN600 MG PO; +LACTATED RINGER'S 1,000 ML IV SCH; +LEVOTHYROXINE75 MCG PO; +LIDOCAINE HCL 1% 5 ML SDV INJ ONE; +METRONIDAZOLE250 MG PO
[2024-09-26 08:56] VITALS: BP 161/69
[2024-09-26] MEDS ORDERED: LIDOCAINE HCL 2% 5 ML SDV ONE (09:21)
[2024-09-26 09:43] LABS: GLOMERULAR FILTRATION RATE,EST 61.0 mL/min (>60); UREA NITROGEN 14.0 mg/dL (7-18)
--- NOTE | 2024-09-26 10:45 | NUR ---
09/26/24 1045 Leena Sellers 1032- PT PRESENTS TO PACU, LEFT LATERAL POSITION. NON REACTIVE TO STIMULUS, BREATHING EVEN AND NON LABORED ON ROOM AIR. LR INFUSING TO RFA IV. ABD SOFT, NON DISTENDED. ALL MONITORS IN PLACE. PT RESTING AT THIS TIME.
[2024-09-26 11:13] VITALS: BP 145/67
--- NOTE | 2024-09-28 14:36 | PATH ---
[facility] [address] [facility] [place] [place] [address] Signed SPECIMEN(S): A CECUM POLYP SPECIMEN(S): B RECTAL POLYP, 10 CM SPECIMEN SOURCE: A. CECUM POLYP B. RECTAL POLYP, 10 CM CLINICAL HISTORY: Screening, sigmoid diverticulosis, polyps FINAL PATHOLOGIC DIAGNOSIS: A. Cecum polyp: - Tubular adenoma (one fragment). B. Rectal polyp at 10 cm: - Hyperplastic polyp (two fragments). JVR:clv MICROSCOPIC EXAMINATION: Histologic sections of all submitted blocks are examined by light microscopy. These findings, together with the gross examination, support the pathologic diagnosis. GROSS DESCRIPTION: A. The specimen, labeled and designated "Hisler, cecum polyp," is received in formalin and consists of one ziegler soft tissue fragment, 0.3 cm. Entirely submitted in (A1). B. The specimen, labeled and designated "Hisler, rectal polyp, 10 cm," is received in formalin and consists of two ziegler soft tissue fragments, ranging from 0.3-0.4 cm. Entirely submitted in (B1). VB (under the direct supervision of a pathologist) The Gross Description was prepared using a voice recognition system. The report was reviewed for accuracy; however, sound-alike word errors, addition and/or deletions may occur. If there is any question about this report, please contact Client Services. PERFORMING LABORATORY: Technical component was performed by [facility], [address] [place] [id number] (CLIA# [id number]). Professional interpretation was performed by [facility], [address] [place] [id number] (CLIA#: [id number]). PATIENT NAME: AUDRA OROZCO PATHOLOGY DATE OF : 55 REPORT #: [id number] PHYSICIAN: [facility] PCP: SUSAN WILLAMS MD REPORT IS CONFIDENTIAL AND NOT TO BE RELEASED WITHOUT AUTHORIZATION [address] [place], [place] [address] Signed Diagnostician: Dontae Lloyd MD Pathologist Electronically Signed 09/28/2024 Copies: ~ PATIENT NAME: AUDRA OROZCO PATHOLOGY DATE OF : 55 REPORT #: [id number] PHYSICIAN: [facility] PCP: SUSAN WILLAMS MD REPORT IS CONFIDENTIAL AND NOT TO BE RELEASED WITHOUT AUTHORIZATION
== END 2024-09-26 11:30 | disposition home or self-care (01) ==
LOC: DS 08:46
PROVIDERS: ATTEND Surgery
PROC: 0DBP8ZX Excision of Rectum, Via Natural or Artificial Opening Endoscopic, Diagnostic (ICD-10-PCS; 2024-09-26)
PROC: 0DBH8ZX Excision of Cecum, Via Natural or Artificial Opening Endoscopic, Diagnostic (ICD-10-PCS; principal; 2024-09-26 09:30)
DX: Z12.11 Encounter for screening for malignant neoplasm of colon (principal); D12.0 Benign neoplasm of cecum; K62.1 Rectal polyp; K57.30 Diverticulosis of large intestine without perforation or abscess without bleeding; K64.9 Unspecified hemorrhoids; I10 Essential (primary) hypertension; E03.9 Hypothyroidism, unspecified; Z79.899 Other long term (current) drug therapy; Z79.890 Hormone replacement therapy; Z88.5 Allergy status to narcotic agent; Z88.1 Allergy status to other antibiotic agents; Z88.0 Allergy status to penicillin; Z88.2 Allergy status to sulfonamides
CPT/HCPCS: 36415; 80048; J0690; J2003; J2704; J7121